=== PATIENT | female | born 1990 | race American Indian/Alaskan Native ===

== ENCOUNTER 2017-03-31 20:25 | Emergency (ER) | payer MEDICAID ==
[2017-03-31 20:40] VITALS: BP 104/65
== END 2017-03-31 21:55 | disposition left against medical advice (07) ==
LOC: ED 20:25
DX: M79.645 Pain in left finger(s) (principal); Z88.0 Allergy status to penicillin; Z88.8 Allergy status to other drugs, medicaments and biological substances; K21.9 Gastro-esophageal reflux disease without esophagitis; G43.909 Migraine, unspecified, not intractable, without status migrainosus; F12.90 Cannabis use, unspecified, uncomplicated; Z53.21 Procedure and treatment not carried out due to patient leaving prior to being seen by health care provider

== ENCOUNTER 2017-07-09 02:01 | Emergency (ER) | payer MEDICAID ==
[2017-07-09 02:51] LABS: Basophils % (Auto) 0.4 % (0.0-1.8); Eosinophils % (Auto) 0.7 % (0.0-4.3); Hematocrit 36.7 % (30.3-42.9); Hemoglobin 12.4 gm/dl (10.1-14.3); Mean Corpuscular HGB Conc 34 % (30-34); Mean Corpuscular Hemoglobin 30 pg (28-32); Mean Corpuscular Volume 88 fl (79-97); Platelet Count 119 K/mm3 (140-440); Red Blood Count 4.19 M/mm3 (3.65-5.03); White Blood Count 4.3 K/mm3 (4.5-11.0)
[2017-07-09 03:27] LABS: Anion Gap 19 mmol/L; BUN/Creatinine Ratio 13.33; Blood Urea Nitrogen 8 mg/dL (7-17); Calcium 8.2 mg/dL (8.4-10.2); Carbon Dioxide 18 mmol/L (22-30); Chloride 102.3 mmol/L (98-107); Glucose 107 mg/dL (65-100); Potassium 3.7 mmol/L (3.6-5.0); Sodium 136 mmol/L (137-145)
[2017-07-09] MEDS ORDERED: KEPPRA 1,000 MG/NS 0.75% 100ML 1,000 MG/100 ML BAG IV ONE (03:30)
--- NOTE | 2017-07-09 06:04 | Emergency Department Report ---
ED Seizure HPI - General Chief Complaint: Seizure Stated Complaint: SEIZURE Time Seen by Provider: 07/09/17 02:22 Source: EMS Mode of arrival: Stretcher Limitations: No Limitations - History of Present Illness Initial Comments: Patient is a 26-year-old female past medical history of seizure disorder who presents status post seizure. Patient states that she feels tired and that she' s had multiple seizures before. Patient had 3 seizures today she states that she's been compliant with her seizure medications. Patient had a generalized tonic-clonic seizure is unknown how long it lasted. Patient had no tongue biting or urination - Related Data Home Medications Medication Instructions Recorded Confirmed Last Taken lamoTRIgine [Lamictal] 01/31/14 01/31/14 Unknown levETIRAcetam [Keppra] 01/31/14 01/31/14 Unknown Previous Rx's Medication Instructions Recorded Last Taken Type Fluticasone Propionate [Flonase] 16 gm NS BID #1 spray.susp 01/31/14 Unknown Rx Sulfamethoxazole/Trimethoprim 1 each PO BID #20 tablet 01/31/14 Unknown Rx [Bactrim Ds] Clindamycin [Clindamycin CAP] 300 mg PO Q6H #28 capsule 02/14/14 Unknown Rx HYDROcodone/APAP 10-325 [[place] 1 each PO Q6HR PRN #16 tablet 02/14/14 Unknown Rx 10/325] Ondansetron [Zofran Odt] 4 mg PO Q6H PRN #8 tab.rapdis 02/14/14 Unknown Rx predniSONE [Deltasone] 20 mg PO BID #10 tab 02/14/14 Unknown Rx Clindamycin Palmitate (Nf) 300 mg PO TID 10 Days 04/13/14 Unknown Rx [Cleocin Palmitate ORAL SOLN] Ondansetron [Zofran Odt] 8 mg PO TID #12 tab.rapdis 05/26/14 Unknown Rx Vit#96/Ferrous Fum/FA 1 each PO QDAY #30 tablet 05/26/14 Unknown Rx [ Tablet] Pyridoxine [Vitamin B-6] 75 mg PO DAILY #20 tablet 05/26/14 Unknown Rx Ibuprofen [Motrin] 600 mg PO Q8H PRN #40 tablet 08/27/15 Unknown Rx Cyclobenzaprine [Flexeril] 10 mg PO TID PRN #15 tablet 06/20/16 Unknown Rx Ibuprofen [Motrin] 800 mg PO Q8HR PRN #15 tablet 06/20/16 Unknown Rx Allergies Allergy/AdvReac Type Severity Reaction Status Date / Time Penicillins Allergy Rash Verified 01/17/16 11:04 hydrocodone bitartrate AdvReac Nausea Verified 01/17/16 11:04 [From Lortab] phenytoin sodium AdvReac Itching Verified 01/17/16 11:04 [From Dilantin] phenytoin sodium extended AdvReac Itching Verified 01/17/16 11:04 [From Dilantin] ED Review of Systems ROS: Stated complaint: SEIZURE Other details as noted in HPI Constitutional: denies: chills, fever Eyes: denies: eye pain, eye discharge, vision change ENT: denies: ear pain, throat pain Respiratory: denies: cough, shortness of breath, wheezing Cardiovascular: denies: chest pain, palpitations Endocrine: no symptoms reported Gastrointestinal: denies: abdominal pain, nausea, diarrhea Genitourinary: denies: urgency, dysuria, discharge Musculoskeletal: denies: back pain, joint swelling, arthralgia Skin: denies: rash, lesions Neurological: other (seizure ). denies: headache, weakness, paresthesias Psychiatric: denies: anxiety, depression Hematological/Lymphatic: denies: easy bleeding, easy bruising ED Past Medical Hx - Past Medical History Hx GERD: Yes Hx Headaches / Migraines: Yes Hx Seizures: Yes - Surgical History Additional Surgical History: left ear surgery - Social History Smoking Status: Unknown if ever smoked Substance Use Type: None - Medications Home Medications: Home Medications Medication Instructions Recorded Confirmed Last Taken Type Fluticasone Propionate [Flonase] 16 gm NS BID #1 spray.susp 01/31/14 Unknown Rx Sulfamethoxazole/Trimethoprim 1 each PO BID #20 tablet 01/31/14 Unknown Rx [Bactrim Ds] lamoTRIgine [Lamictal] 01/31/14 01/31/14 Unknown History levETIRAcetam [Keppra] 01/31/14 01/31/14 Unknown History Clindamycin [Clindamycin CAP] 300 mg PO Q6H #28 capsule 02/14/14 Unknown Rx HYDROcodone/APAP 10-325 [[place] 1 each PO Q6HR PRN #16 tablet 03/24/14 Unknown Rx 10/325] Ondansetron [Zofran Odt] 4 mg PO Q6H PRN #8 tab.rapdis 02/14/14 Unknown Rx predniSONE [Deltasone] 20 mg PO BID #10 tab 02/14/14 Unknown Rx Clindamycin Palmitate (Nf) 300 mg PO TID 10 Days 04/13/14 Unknown Rx [Cleocin Palmitate ORAL SOLN] Ondansetron [Zofran Odt] 8 mg PO TID #12 tab.rapdis 05/26/14 Unknown Rx Vit#96/Ferrous Fum/FA 1 each PO QDAY #30 tablet 05/26/14 Unknown Rx [ Tablet] Pyridoxine [Vitamin B-6] 75 mg PO DAILY #20 tablet 05/26/14 Unknown Rx Ibuprofen [Motrin] 600 mg PO Q8H PRN #40 tablet 08/27/15 Unknown Rx Cyclobenzaprine [Flexeril] 10 mg PO TID PRN #15 tablet 06/20/16 Unknown Rx Ibuprofen [Motrin] 800 mg PO Q8HR PRN #15 tablet 06/20/16 Unknown Rx ED Physical Exam - General Limitations: No Limitations General appearance: alert, in no apparent distress, lethargic - Head Head exam: Present: atraumatic, normocephalic - Eye Eye exam: Present: normal appearance - ENT ENT exam: Present: mucous membranes moist - Neck Neck exam: Present: normal inspection - Respiratory Respiratory exam: Present: normal lung sounds bilaterally. Absent: respiratory distress - Cardiovascular Cardiovascular Exam: Present: regular rate, normal rhythm. Absent: systolic murmur, diastolic murmur, rubs, gallop - GI/Abdominal GI/Abdominal exam: Present: soft, normal bowel sounds - Extremities Exam Extremities exam: Present: normal inspection - Back Exam Back exam: Present: normal inspection - Neurological Exam Neurological exam: Present: alert, oriented X3 - Psychiatric Psychiatric exam: Present: normal affect, normal mood - Skin Skin exam: Present: warm, dry, intact, normal color. Absent: rash ED Course Vital Signs 07/09/17 07/09/17 07/09/17 02:11 02:30 03:00 Temperature 98.8 F Pulse Rate 83 78 74 Respiratory 16 13 22 Rate Blood Pressure 127/73 122/71 Blood Pressure 140/81 [Right] O2 Sat by Pulse 100 99 97 Oximetry 07/09/17 07/09/17 07/09/17 03:30 04:00 04:30 Temperature Pulse Rate 76 71 76 Respiratory 21 22 13 Rate Blood Pressure 113/65 107/61 108/75 Blood Pressure [Right] O2 Sat by Pulse 98 96 Oximetry 07/09/17 07/09/17 07/09/17 05:00 05:30 06:00 Temperature Pulse Rate 64 68 81 Respiratory 22 22 14 Rate Blood Pressure 96/52 92/46 92/46 Blood Pressure [Right] O2 Sat by Pulse 97 97 99 Oximetry 07/09/17 06:07 Temperature Pulse Rate 69 Respiratory 12 Rate Blood Pressure Blood Pressure 112/68 [Right] O2 Sat by Pulse 100 Oximetry - Reevaluation(s) Reevaluation #1: 07/09/17 06:48 Patient is feeling better, we'll send patient home discussed the patient to follow up with her neurologist. ED Medical Decision Making - Lab Data Result diagrams: 07/09/17 02:16 07/09/17 02:16 Lab Results 07/09/17 07/09/17 07/09/17 Range/Units 02:16 02:16 02:17 WBC 4.3 L (4.5-11.0) K/mm3 RBC 4.19 (3.65-5.03) M/mm3 Hgb 12.4 (10.1-14.3) gm/dl Hct 36.7 (30.3-42.9) % MCV 88 (79-97) fl MCH 30 (28-32) pg MCHC 34 (30-34) % RDW 13.0 L (13.2-15.2) % Plt Count 119 L (140-440) K/mm3 Lymph % (Auto) 26.3 (13.4-35.0) % [place] % (Auto) 7.3 (0.0-7.3) % Eos % (Auto) 0.7 (0.0-4.3) % Baso % (Auto) 0.4 (0.0-1.8) % Lymph # 1.1 L (1.2-5.4) K/mm3 [place] # 0.3 (0.0-0.8) K/mm3 Eos # 0.0 (0.0-0.4) K/mm3 Baso # 0.0 (0.0-0.1) K/mm3 Seg Neutrophils % 65.3 (40.0-70.0) % Seg Neutrophils # 2.8 (1.8-7.7) K/mm3 Sodium 136 L (137-145) mmol/L Potassium 3.7 (3.6-5.0) mmol/L Chloride 102.3 (98-107) mmol/L Carbon Dioxide 18 L (22-30) mmol/L Anion Gap 19 mmol/L BUN 8 (7-17) mg/dL Creatinine 0.6 L (0.7-1.2) mg/dL Estimated GFR > 60 ml/min BUN/Creatinine Ratio 13.33 % Glucose 107 H (65-100) mg/dL POC Glucose 126 H (70-105) Calcium 8.2 L (8.4-10.2) mg/dL HCG, Qual (Negative) 07/09/17 Range/Units 02:33 WBC (4.5-11.0) K/mm3 RBC (3.65-5.03) M/mm3 Hgb (10.1-14.3) gm/dl Hct (30.3-42.9) % MCV (79-97) fl MCH (28-32) pg MCHC (30-34) % RDW (13.2-15.2) % Plt Count (140-440) K/mm3 Lymph % (Auto) (13.4-35.0) % [place] % (Auto) (0.0-7.3) % Eos % (Auto) (0.0-4.3) % Baso % (Auto) (0.0-1.8) % Lymph # (1.2-5.4) K/mm3 [place] # (0.0-0.8) K/mm3 Eos # (0.0-0.4) K/mm3 Baso # (0.0-0.1) K/mm3 Seg Neutrophils % (40.0-70.0) % Seg Neutrophils # (1.8-7.7) K/mm3 Sodium (137-145) mmol/L Potassium (3.6-5.0) mmol/L Chloride (98-107) mmol/L Carbon Dioxide (22-30) mmol/L Anion Gap mmol/L BUN (7-17) mg/dL Creatinine (0.7-1.2) mg/dL Estimated GFR ml/min BUN/Creatinine Ratio % Glucose (65-100) mg/dL POC Glucose (70-105) Calcium (8.4-10.2) mg/dL HCG, Qual Negative (Negative) - Medical Decision Making Chief medical diagnosis: 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 Patient has had seizures in the ED she is more alert and oriented I will send patient home. Patient's laboratory findings are within the normal limits. Critical care attestation.: If time is entered above; I have spent that time in minutes in the direct care of this critically ill patient, excluding procedure time. ED Disposition Clinical Impression: Seizure Disposition: DC-01 TO HOME OR SELFCARE Is pt being admited?: No Does the pt Need Aspirin: No Condition: Stable Instructions: Epilepsy (ED) Referrals: PRIMARY CARE, [Primary Care Provider] - 3-5 Days
[2017-07-09 06:08] VITALS: BP 112/68
== END 2017-07-09 06:32 | disposition home or self-care (01) ==
LOC: ED 02:01
DX: G40.909 Epilepsy, unspecified, not intractable, without status epilepticus (principal); Z88.0 Allergy status to penicillin; Z88.8 Allergy status to other drugs, medicaments and biological substances; K21.9 Gastro-esophageal reflux disease without esophagitis; G43.909 Migraine, unspecified, not intractable, without status migrainosus
CPT/HCPCS: 36415; 80048; 82962; 84703; 85025; 96374; 99284; J1953

== ENCOUNTER 2017-10-12 13:58 | Emergency (ER) | payer MEDICAID ==
[2017-10-12] MEDS ORDERED: KEPPRA 1,000 MG/NS 0.75% 100ML 1,000 MG/100 ML BAG IV ONE ×2 (14:03→14:14)
[2017-10-12 16:00] LABS: Basophils % (Auto) 0.5 % (0.0-1.8); Hematocrit 40.2 % (30.3-42.9); Hemoglobin 13.6 gm/dl (10.1-14.3); Mean Corpuscular HGB Conc 34 % (30-34); Mean Corpuscular Hemoglobin 30 pg (28-32); Mean Corpuscular Volume 87 fl (79-97); Platelet Count 111 K/mm3 (140-440); Red Cell Distribution Width 12.9 % (13.2-15.2); White Blood Count 5.9 K/mm3 (4.5-11.0)
[2017-10-12] MEDS ORDERED: ATIVAN IV ONE (16:15)
[2017-10-12] MEDS ORDERED: ATIVAN ONE (16:16)
[2017-10-12 16:17] LABS: Alanine Aminotransferase 8 units/L (7-56); Albumin 4.4 g/dL (3.9-5); Albumin/Globulin Ratio 1.8 %; Alkaline Phosphatase 50 units/L (35-129); Anion Gap 15 mmol/L; BUN/Creatinine Ratio 17; Blood Urea Nitrogen 10 mg/dL (7-17); Calcium 9.1 mg/dL (8.4-10.2); Carbon Dioxide 26 mmol/L (22-30); Glucose 81 mg/dL (65-100); Potassium 4.3 mmol/L (3.6-5.0); Sodium 138 mmol/L (137-145); Total Protein 6.9 g/dL (6.3-8.2)
[2017-10-12 16:18] LABS: Bilirubin,Direct < 0.2 mg/dL (0-0.2); Bilirubin,Indirect 0.2 mg/dL
[2017-10-12 16:37] LABS: Urine Drugs of Abuse Note Disclamer
[2017-10-12 17:18] LABS: Bacteria,Urine 1+ /HPF (Negative); Bilirubin,Urine NEG (Negative); Blood,Urine NEG (Negative); Ketones,Urine NEG (Negative); Leukocyte Esterase,Urine NEG (Negative); Nitrite,Urine NEG (Negative); Protein,Urine <15 mg/dL mg/dL (Negative); RBC,Urine < 1.0 /HPF (0.0-6.0); Urobilinogen,Urine < 2.0 mg/dL (<2.0)
--- NOTE | 2017-10-12 17:42 | Emergency Department Report ---
ED Seizure HPI - General Chief Complaint: Seizure Stated Complaint: SEIZURES Time Seen by Provider: 10/12/17 14:14 Source: EMS Mode of arrival: Wheelchair Limitations: No Limitations - History of Present Illness Initial Comments: Patient apparently had a seizure at home and then presented to the emergency department postictal the EMS. At the time of my encounter she was starting to come around. Paramedics reported noncompliance with her Keppra medicine. They did report a normal spot glucose. Her vital signs were stable in route. When she arrived she was immediately given a gram of Keppra intravenously. MD Complaint: seizure -: Sudden Description of Episode: tonic-clonic movement -: minutes(s) (no precise duration was reported) Witnessed:: Yes Trauma: No Seizure History: known seizure disorder Place: home Possible Precipitating Event: other (medication noncompliance) - Related Data Home Medications Medication Instructions Recorded Confirmed Last Taken lamoTRIgine [Lamictal] 01/31/14 01/31/14 Unknown levETIRAcetam [Keppra] 01/31/14 01/31/14 Unknown Previous Rx's Medication Instructions Recorded Last Taken Type Fluticasone Propionate [Flonase] 16 gm NS BID #1 spray.susp 01/31/14 Unknown Rx Sulfamethoxazole/Trimethoprim 1 each PO BID #20 tablet 01/31/14 Unknown Rx [Bactrim Ds] Clindamycin [Clindamycin CAP] 300 mg PO Q6H #28 capsule 02/14/14 Unknown Rx HYDROcodone/APAP 10-325 [[place] 1 each PO Q6HR PRN #16 tablet 02/14/14 Unknown Rx 10/325] Ondansetron [Zofran Odt] 4 mg PO Q6H PRN #8 tab.rapdis 02/14/14 Unknown Rx predniSONE [Deltasone] 20 mg PO BID #10 tab 02/14/14 Unknown Rx Clindamycin Palmitate (Nf) 300 mg PO TID 10 Days ml 04/13/14 Unknown Rx [Cleocin Palmitate ORAL SOLN] Ondansetron [Zofran Odt] 8 mg PO TID #12 tab.rapdis 05/26/14 Unknown Rx Vits96/Iron Fum/Folic 1 each PO QDAY #30 tablet 05/26/14 Unknown Rx [ Tablet] Pyridoxine [Vitamin B-6] 75 mg PO DAILY #20 tablet 05/26/14 Unknown Rx Ibuprofen [Motrin] 600 mg PO Q8H PRN #40 tablet 08/27/15 Unknown Rx Cyclobenzaprine [Flexeril] 10 mg PO TID PRN #15 tablet 06/20/16 Unknown Rx Ibuprofen [Motrin] 800 mg PO Q8HR PRN #15 tablet 06/20/16 Unknown Rx Allergies Allergy/AdvReac Type Severity Reaction Status Date / Time Penicillins Allergy Rash Verified 01/17/16 11:04 hydrocodone bitartrate AdvReac Nausea Verified 01/17/16 11:04 [From Lortab] phenytoin sodium AdvReac Itching Verified 01/17/16 11:04 [From Dilantin] phenytoin sodium extended AdvReac Itching Verified 01/17/16 11:04 [From Dilantin] ED Review of Systems ROS: Stated complaint: SEIZURES Other details as noted in HPI Comment: Unobtainable due to pts medical conditions ED Past Medical Hx - Past Medical History Hx GERD: Yes Hx Headaches / Migraines: Yes Hx Seizures: Yes - Surgical History Additional Surgical History: left ear surgery - Social History Smoking Status: Unknown if ever smoked Substance Use Type: None - Medications Home Medications: Home Medications Medication Instructions Recorded Confirmed Last Taken Type Fluticasone Propionate [Flonase] 16 gm NS BID #1 spray.susp 01/31/14 Unknown Rx Sulfamethoxazole/Trimethoprim 1 each PO BID #20 tablet 01/31/14 Unknown Rx [Bactrim Ds] lamoTRIgine [Lamictal] 01/31/14 01/31/14 Unknown History levETIRAcetam [Keppra] 01/31/14 01/31/14 Unknown History Clindamycin [Clindamycin CAP] 300 mg PO Q6H #28 capsule 02/14/14 Unknown Rx HYDROcodone/APAP 10-325 [[place] 1 each PO Q6HR PRN #16 tablet 02/14/14 Unknown Rx 10/325] Ondansetron [Zofran Odt] 4 mg PO Q6H PRN #8 tab.rapdis 02/14/14 Unknown Rx predniSONE [Deltasone] 20 mg PO BID #10 tab 02/14/14 Unknown Rx Clindamycin Palmitate (Nf) 300 mg PO TID 10 Days ml 04/13/14 Unknown Rx [Cleocin Palmitate ORAL SOLN] Ondansetron [Zofran Odt] 8 mg PO TID #12 tab.rapdis 05/26/14 Unknown Rx Vits96/Iron Fum/Folic 1 each PO QDAY #30 tablet 05/26/14 Unknown Rx [ Tablet] Pyridoxine [Vitamin B-6] 75 mg PO DAILY #20 tablet 05/26/14 Unknown Rx Ibuprofen [Motrin] 600 mg PO Q8H PRN #40 tablet 08/27/15 Unknown Rx Cyclobenzaprine [Flexeril] 10 mg PO TID PRN #15 tablet 06/20/16 Unknown Rx Ibuprofen [Motrin] 800 mg PO Q8HR PRN #15 tablet 06/20/16 Unknown Rx ED Physical Exam - General Limitations: No Limitations General appearance: alert, in no apparent distress - Head Head exam: Present: atraumatic, normocephalic - Eye Eye exam: Present: normal appearance - ENT ENT exam: Present: mucous membranes moist - Neck Neck exam: Present: normal inspection. Absent: tenderness, meningismus - Respiratory Respiratory exam: Present: normal lung sounds bilaterally. Absent: respiratory distress - Cardiovascular Cardiovascular Exam: Present: regular rate, normal rhythm. Absent: systolic murmur, diastolic murmur, rubs, gallop - GI/Abdominal GI/Abdominal exam: Present: soft, normal bowel sounds. Absent: distended, tenderness, guarding, rebound, rigid - Extremities Exam Extremities exam: Present: normal inspection - Neurological Exam Neurological exam: Present: other (post afebrile without apparent focal deficit) - Psychiatric Psychiatric exam: Present: normal affect, normal mood - Skin Skin exam: Present: warm, dry, intact, normal color. Absent: rash ED Course Vital Signs 10/12/17 10/12/17 10/12/17 14:05 14:31 15:01 Temperature Pulse Rate 76 72 Respiratory 15 16 20 Rate Blood Pressure 132/66 109/67 Blood Pressure [Right] O2 Sat by Pulse 100 100 100 Oximetry 10/12/17 10/12/17 10/12/17 15:30 15:35 15:38 Temperature 98 F Pulse Rate 72 77 Respiratory 12 13 13 Rate Blood Pressure 111/69 Blood Pressure 109/67 [Right] O2 Sat by Pulse 100 100 100 Oximetry 10/12/17 10/12/17 10/12/17 16:00 16:30 17:00 Temperature Pulse Rate 77 72 67 Respiratory 16 12 22 Rate Blood Pressure 110/72 108/66 123/70 Blood Pressure [Right] O2 Sat by Pulse 100 100 99 Oximetry 10/12/17 17:30 Temperature Pulse Rate 77 Respiratory 23 Rate Blood Pressure 100/57 Blood Pressure 100/57 [Right] O2 Sat by Pulse 99 Oximetry - Reevaluation(s) Reevaluation #1: The patient had another generalized seizure. Nurses gave 2 mg of Ativan. She had her workup expanded. Patient was admitted by Dr. Connelly to the hospitalist service for further care. 10/12/17 17:42 ED Medical Decision Making - Lab Data Result diagrams: 10/12/17 15:40 10/12/17 15:40 Laboratory Results - last 24 hr 10/12/17 10/12/17 10/12/17 15:40 15:40 16:32 WBC 5.9 RBC 4.60 Hgb 13.6 Hct 40.2 MCV 87 MCH 30 MCHC 34 RDW 12.9 L Plt Count 111 L Lymph % (Auto) 25.5 [place] % (Auto) 9.4 H Eos % (Auto) 1.0 Baso % (Auto) 0.5 Lymph # 1.5 [place] # 0.6 Eos # 0.1 Baso # 0.0 Seg Neutrophils % 63.6 Seg Neutrophils # 3.8 Sodium 138 Potassium 4.3 Chloride 101.0 Carbon Dioxide 26 Anion Gap 15 BUN 10 Creatinine 0.6 L Estimated GFR > 60 BUN/Creatinine Ratio 17 Glucose 81 Calcium 9.1 Magnesium 1.80 Total Bilirubin 0.40 Direct Bilirubin < 0.2 Indirect Bilirubin 0.2 AST 17 ALT 8 Alkaline Phosphatase 50 Total Protein 6.9 Albumin 4.4 Albumin/Globulin Ratio 1.8 Urine Color Yellow Urine Turbidity Clear Urine pH 6.0 Ur Specific [place] 1.013 Urine Protein <15 mg/dl Urine Glucose (UA) Neg Urine Ketones Neg Urine Blood Neg Urine Nitrite Neg Urine Bilirubin Neg Urine Urobilinogen < 2.0 Ur Leukocyte Esterase Neg Urine WBC (Auto) 1.0 Urine RBC (Auto) < 1.0 U Epithel Cells (Auto) 9.0 Urine Bacteria (Auto) 1+ Urine HCG, Qual Negative Urine Opiates Screen Urine Methadone Screen Ur Barbiturates Screen Ur Phencyclidine Scrn Ur Amphetamines Screen U Benzodiazepines Scrn Urine Cocaine Screen U Marijuana (THC) Screen Drugs of Abuse Note 10/12/17 16:32 WBC RBC Hgb Hct MCV MCH MCHC RDW Plt Count Lymph % (Auto) [place] % (Auto) Eos % (Auto) Baso % (Auto) Lymph # [place] # Eos # Baso # Seg Neutrophils % Seg Neutrophils # Sodium Potassium Chloride Carbon Dioxide Anion Gap BUN Creatinine Estimated GFR BUN/Creatinine Ratio Glucose Calcium Magnesium Total Bilirubin Direct Bilirubin Indirect Bilirubin AST ALT Alkaline Phosphatase Total Protein Albumin Albumin/Globulin Ratio Urine Color Urine Turbidity Urine pH Ur Specific [place] Urine Protein Urine Glucose (UA) Urine Ketones Urine Blood Urine Nitrite Urine Bilirubin Urine Urobilinogen Ur Leukocyte Esterase Urine WBC (Auto) Urine RBC (Auto) U Epithel Cells (Auto) Urine Bacteria (Auto) Urine HCG, Qual Urine Opiates Screen Presumptive negative Urine Methadone Screen Presumptive negative Ur Barbiturates Screen Presumptive negative Ur Phencyclidine Scrn Presumptive negative Ur Amphetamines Screen Presumptive negative U Benzodiazepines Scrn Presumptive negative Urine Cocaine Screen Presumptive negative U Marijuana (THC) Screen Presumptive positive Drugs of Abuse Note Disclamer - EKG Data -: EKG Interpreted by Me EKG shows normal: sinus rhythm, axis, intervals, QRS complexes, ST-T waves Rate: normal - EKG Data Interpretation: no acute changes - Radiology Data interpreted by me: No acute process seen on CT. Official report pending. Critical care attestation.: If time is entered above; I have spent that time in minutes in the direct care of this critically ill patient, excluding procedure time. ED Disposition Clinical Impression: Recurrent seizures Disposition: OP ADMIT IP TO THIS HOSP Is pt being admited?: Yes Does the pt Need Aspirin: Yes Condition: Stable Time of Disposition: 17:48
[2017-10-12] MEDS ORDERED: BABY ASPIRIN PO ONE (17:49)
--- NOTE | 2017-10-12 17:52 | Cat Scan Report ---
FINAL REPORT PROCEDURE: CT HEAD/BRAIN WO CON TECHNIQUE: Computerized tomography of the head was performed without contrast material. HISTORY: recurrent sz COMPARISON: No prior studies are available for comparison. FINDINGS: Brain: Brain density appears normal. No evidence of intracranial hemorrhage. No parenchymal hemorrhage, mass lesions or mass effect are seen. No abnormal extraxial fluid collects or masses are seen. Ventricles: Ventricles are normal size and are midline. Bone Windows: No evidence of skull fracture. Paranasal sinuses: Visualized portions appear clear. Mastoid air cells: Clear IMPRESSION: Negative unenhanced CT scan of the brain. If clinically indicated MRI of the brain could be obtained to evaluate for possible seizure focus.
--- NOTE | 2017-10-12 18:28 | XRay Report ---
FINAL REPORT EXAM: XR CHEST 1V AP HISTORY: hypertension TECHNIQUE: AP portable view(s) of the chest obtained. PRIORS: None. FINDINGS: No mediastinal shift. Cardiac silhouette is not enlarged. No pneumothorax, effusion, or focal pulmonary opacity identified. No acute skeletal findings. IMPRESSION: No acute pulmonary finding identified.
--- NOTE | 2017-10-12 19:17 | Event Note ---
Date: 10/12/17 Patient seen and evaluated Seizure disorder wial state back to normal at 1018 hrs On Keppra 1000mg po q12h Did not take keppra for 2 days b/c odf sore throat.
[2017-10-12 21:17] VITALS: BP 111/75
== END 2017-10-12 21:18 | disposition admitted as inpatient to this hospital (09) ==
LOC: ED 13:58
DX: G40.909 Epilepsy, unspecified, not intractable, without status epilepticus (principal); K21.9 Gastro-esophageal reflux disease without esophagitis; G43.909 Migraine, unspecified, not intractable, without status migrainosus; Z88.0 Allergy status to penicillin; Z88.8 Allergy status to other drugs, medicaments and biological substances
CPT/HCPCS: 36415; 70450; 71010; 80048; 80074; 80307; 81001; 81025; 83735; 85025; 93005; 93010; 96365; 96375; 99285; J1953; J2060

== ENCOUNTER 2018-02-11 10:40 | Emergency (ER) | payer MEDICAID ==
[2018-02-11] MEDS ORDERED: REGLAN IV ONE (11:01)
[2018-02-11] MEDS ORDERED: BENADRYL IV ONE (11:01)
[2018-02-11] MEDS ORDERED: TORADOL IV ONE (11:01)
[2018-02-11] MEDS ORDERED: KEPPRA 1,000 MG/NS 0.75% 100ML 1,000 MG/100 ML BAG IV ONE (11:02)
[2018-02-11] MEDS ORDERED: LaMICtal PO ONE (11:06)
--- NOTE | 2018-02-11 11:12 | Emergency Department Report ---
ED Seizure HPI - General Stated Complaint: SEIZURES Source: patient, EMS Mode of arrival: Stretcher Limitations: No Limitations - History of Present Illness Initial Comments: 27-year-old female with a past medical history of seizures presents to the hospital after having 4 seizures (3 home and one in route witnessed by EMS) prior to arrival. Seizure witnessed by EMS lasted approximately 30 seconds, tonic-clonic, followed by 3 minute postictal period. Patient takes Keppra and Lamictal and took her last dose last night and did not have her a.m. dose. She does have her refills available in the pharmacy. When she was here in September when she had her last seizure and had a CT head that was negative at that time. Patient typically has her seizures and clusters. She reports as a bitemporal and frontal headache that is moderate to severe in intensity, throbbing and burning, and aggravated by light. This is typical of her chronic intermittent migraine headaches to have been more frequent lately secondary to stress. She saw her neurologist is Dr. Engle on the and had a magnesium based migraine medication prescribed. Positive nausea without vomiting. No focal weakness, numbness, or tongue laceration - Related Data Home Medications Medication Instructions Recorded Confirmed Last Taken lamoTRIgine [Lamictal] 01/31/14 01/31/14 Unknown levETIRAcetam [Keppra] 01/31/14 01/31/14 Unknown Previous Rx's Medication Instructions Recorded Last Taken Type Fluticasone Propionate [Flonase] 16 gm NS BID #1 spray.susp 01/31/14 Unknown Rx Sulfamethoxazole/Trimethoprim 1 each PO BID #20 tablet 01/31/14 Unknown Rx [Bactrim Ds] Clindamycin [Clindamycin CAP] 300 mg PO Q6H #28 capsule 02/14/14 Unknown Rx HYDROcodone/APAP 10-325 [[place] 1 each PO Q6HR PRN #16 tablet 02/14/14 Unknown Rx 10/325] Ondansetron [Zofran Odt] 4 mg PO Q6H PRN #8 tab.rapdis 02/14/14 Unknown Rx predniSONE [Deltasone] 20 mg PO BID #10 tab 02/14/14 Unknown Rx Clindamycin Palmitate (Nf) 300 mg PO TID 10 Days ml 04/13/14 Unknown Rx [Cleocin Palmitate ORAL SOLN] Ondansetron [Zofran Odt] 8 mg PO TID #12 tab.rapdis 05/26/14 Unknown Rx Vits96/Iron Fum/Folic 1 each PO QDAY #30 tablet 05/26/14 Unknown Rx [ Tablet] Pyridoxine [Vitamin B-6] 75 mg PO DAILY #20 tablet 05/26/14 Unknown Rx Ibuprofen [Motrin] 600 mg PO Q8H PRN #40 tablet 08/27/15 Unknown Rx Cyclobenzaprine [Flexeril] 10 mg PO TID PRN #15 tablet 06/20/16 Unknown Rx Ibuprofen [Motrin] 800 mg PO Q8HR PRN #15 tablet 06/20/16 Unknown Rx Allergies Allergy/AdvReac Type Severity Reaction Status Date / Time Penicillins Allergy Rash Verified 01/17/16 11:04 hydrocodone bitartrate AdvReac Nausea Verified 01/17/16 11:04 [From Lortab] phenytoin sodium AdvReac Itching Verified 01/17/16 11:04 [From Dilantin] phenytoin sodium extended AdvReac Itching Verified 01/17/16 11:04 [From Dilantin] ED Review of Systems ROS: Stated complaint: SEIZURES Other details as noted in HPI Comment: All other systems reviewed and negative ED Past Medical Hx - Past Medical History Hx GERD: Yes Hx Headaches / Migraines: Yes Hx Seizures: Yes - Surgical History Additional Surgical History: left ear surgery - Social History Smoking Status: Unknown if ever smoked Substance Use Type: None - Medications Home Medications: Home Medications Medication Instructions Recorded Confirmed Last Taken Type Fluticasone Propionate [Flonase] 16 gm NS BID #1 spray.susp 01/31/14 Unknown Rx Sulfamethoxazole/Trimethoprim 1 each PO BID #20 tablet 01/31/14 Unknown Rx [Bactrim Ds] lamoTRIgine [Lamictal] 01/31/14 01/31/14 Unknown History levETIRAcetam [Keppra] 01/31/14 01/31/14 Unknown History Clindamycin [Clindamycin CAP] 300 mg PO Q6H #28 capsule 02/14/14 Unknown Rx HYDROcodone/APAP 10-325 [[place] 1 each PO Q6HR PRN #16 tablet 02/14/14 Unknown Rx 10/325] Ondansetron [Zofran Odt] 4 mg PO Q6H PRN #8 tab.rapdis 02/14/14 Unknown Rx predniSONE [Deltasone] 20 mg PO BID #10 tab 02/14/14 Unknown Rx Clindamycin Palmitate (Nf) 300 mg PO TID 10 Days ml 04/13/14 Unknown Rx [Cleocin Palmitate ORAL SOLN] Ondansetron [Zofran Odt] 8 mg PO TID #12 tab.rapdis 05/26/14 Unknown Rx Vits96/Iron Fum/Folic 1 each PO QDAY #30 tablet 05/26/14 Unknown Rx [ Tablet] Pyridoxine [Vitamin B-6] 75 mg PO DAILY #20 tablet 05/26/14 Unknown Rx Ibuprofen [Motrin] 600 mg PO Q8H PRN #40 tablet 08/27/15 Unknown Rx Cyclobenzaprine [Flexeril] 10 mg PO TID PRN #15 tablet 06/20/16 Unknown Rx Ibuprofen [Motrin] 800 mg PO Q8HR PRN #15 tablet 06/20/16 Unknown Rx ED Physical Exam - Other Other exam information: General: No limitations, patient is alert in no acute distress Head exam: Atraumatic, normocephalic Eyes exam: Normal appearance, extraocular movements intact ENT: Moist mucous membrane, normal oropharynx Neck exam: Normal inspection, full range of motion, no meningismus nontender Respiratory exam: Clear to auscultation bilateral, no wheezes, rales, crackles Cardiovascular: Normal rate and rhythm, normal heart sounds Abdomen: Soft, nondistended, and nontender, with normal bowel sounds, no rebound, or guarding Extremity: Full range of motion normal inspection no deformity Back: Normal Inspection, full range of motion, no tenderness Neurologic: Alert, oriented x3, cranial nerves intact, no motor or sensory deficit Psychiatric: normal affect, normal mood Skin: Warm, dry, intact ED Course Vital Signs 02/11/18 02/11/18 02/11/18 10:52 11:01 11:15 Temperature Pulse Rate Blood Pressure O2 Sat by Pulse 100 100 100 Oximetry 02/11/18 02/11/18 02/11/18 11:31 11:39 11:45 Temperature 98.6 F Pulse Rate 68 Blood Pressure 122/80 125/78 O2 Sat by Pulse 100 100 100 Oximetry 02/11/18 02/11/18 02/11/18 12:00 12:15 12:30 Temperature Pulse Rate Blood Pressure 129/86 131/87 123/85 O2 Sat by Pulse 100 100 98 Oximetry 02/11/18 02/11/18 12:45 13:00 Temperature Pulse Rate Blood Pressure 116/77 116/66 O2 Sat by Pulse 99 100 Oximetry - Reevaluation(s) Reevaluation #1: 02/11/18 13:17 pt feeling better with ed treatment ED Medical Decision Making - Lab Data Result diagrams: 02/11/18 11:04 02/11/18 11:04 Lab Results 02/11/18 02/11/18 02/11/18 Range/Units 11:04 11:04 11:04 WBC 3.0 L (4.5-11.0) K/mm3 RBC 4.74 (3.65-5.03) M/mm3 Hgb 13.7 (10.1-14.3) gm/dl Hct 41.2 (30.3-42.9) % MCV 87 (79-97) fl MCH 29 (28-32) pg MCHC 33 (30-34) % RDW 13.4 (13.2-15.2) % Plt Count 153 (140-440) K/mm3 Lymph % (Auto) 53.6 H (13.4-35.0) % [place] % (Auto) 7.1 (0.0-7.3) % Eos % (Auto) 2.5 (0.0-4.3) % Baso % (Auto) 0.8 (0.0-1.8) % Lymph # 1.6 (1.2-5.4) K/mm3 [place] # 0.2 (0.0-0.8) K/mm3 Eos # 0.1 (0.0-0.4) K/mm3 Baso # 0.0 (0.0-0.1) K/mm3 Seg Neutrophils % 36.0 L (40.0-70.0) % Seg Neutrophils # 1.1 L (1.8-7.7) K/mm3 Sodium 139 (137-145) mmol/L Potassium 4.4 (3.6-5.0) mmol/L Chloride 100.7 (98-107) mmol/L Carbon Dioxide 26 (22-30) mmol/L Anion Gap 17 mmol/L BUN 8 (7-17) mg/dL Creatinine 0.5 L (0.7-1.2) mg/dL Estimated GFR > 60 ml/min BUN/Creatinine Ratio 16 % Glucose 86 (65-100) mg/dL Calcium 8.9 (8.4-10.2) mg/dL Magnesium 1.90 (1.7-2.3) mg/dL HCG, Qual Negative (Negative) - Medical Decision Making Seizure Likely secondary to medication noncompliance. Patient received Keppra and Lamictal in the ED without further seizure activity Migraine headache Chronic, intermittent, and typical for previous headaches Improved after Benadryl, Reglan, and Toradol Patient will be discharged and encouraged to follow up with her neurologist and to take her medication as prescribed - Differential Diagnosis migraine, seizure, medication noncompliance, electrolyte abnormality, Critical Care Time: No Critical care attestation.: If time is entered above; I have spent that time in minutes in the direct care of this critically ill patient, excluding procedure time. ED Disposition Clinical Impression: Seizure, Migraine Disposition: DC- TO HOME OR SELFCARE Is pt being admited?: No Does the pt Need Aspirin: No Condition: Stable Instructions: Recurrent Seizures Adult (ED), Migraine Headache (ED) Additional Instructions: Take your medication as prescribed. Follow up with the neurologist. Return if symptoms worsen. Referrals: BRANDI ENGLE MD [Staff Physician] - 3-5 Days Time of Disposition: 13:21
[2018-02-11 11:40] LABS: Basophils % (Auto) 0.8 % (0.0-1.8); Eosinophils # (Auto) 0.1 K/mm3 (0.0-0.4); Eosinophils % (Auto) 2.5 % (0.0-4.3); Hematocrit 41.2 % (30.3-42.9); Hemoglobin 13.7 gm/dl (10.1-14.3); Lymphocytes # (Auto) 1.6 K/mm3 (1.2-5.4); Lymphocytes % (Auto) 53.6 % (13.4-35.0); Mean Corpuscular HGB Conc 33 % (30-34); Mean Corpuscular Hemoglobin 29 pg (28-32); Mean Corpuscular Volume 87 fl (79-97); Monocytes # (Auto) 0.2 K/mm3 (0.0-0.8); Monocytes % (Auto) 7.1 % (0.0-7.3); Platelet Count 153 K/mm3 (140-440); Red Blood Count 4.74 M/mm3 (3.65-5.03); Red Cell Distribution Width 13.4 % (13.2-15.2)
[2018-02-11 11:43] LABS: BUN/Creatinine Ratio 16; Blood Urea Nitrogen 8 mg/dL (7-17); Calcium 8.9 mg/dL (8.4-10.2); Hemolysis Index 16
[2018-02-11 13:55] VITALS: BP 118/70
== END 2018-02-11 13:55 | disposition home or self-care (01) ==
LOC: ED 10:40
DX: R56.9 Unspecified convulsions (principal); G43.909 Migraine, unspecified, not intractable, without status migrainosus; Z88.0 Allergy status to penicillin; Z88.8 Allergy status to other drugs, medicaments and biological substances; K21.9 Gastro-esophageal reflux disease without esophagitis
CPT/HCPCS: 36415; 80048; 83735; 84703; 85025; 96365; 96375; 99283; J1200; J1885; J1953; J2765

== ENCOUNTER 2018-06-01 04:27 | Emergency (ER) | payer MEDICAID ==
[2018-06-01 05:19] LABS: Bilirubin,Urine NEG (Negative); Blood,Urine NEG (Negative); Color,Urine Yellow (Yellow); Mucus,Urine FEW /HPF; Protein,Urine <15 mg/dL mg/dL (Negative); Urobilinogen,Urine < 2.0 mg/dL (<2.0)
[2018-06-01 05:53] LABS: Basophils % (Auto) 0.4 % (0.0-1.8); Eosinophils # (Auto) 0.1 K/mm3 (0.0-0.4); Eosinophils % (Auto) 1.3 % (0.0-4.3); Hematocrit 36.8 % (30.3-42.9); Hemoglobin 12.4 gm/dl (10.1-14.3); Lymphocytes # (Auto) 1.9 K/mm3 (1.2-5.4); Lymphocytes % (Auto) 35.5 % (13.4-35.0); Mean Corpuscular HGB Conc 34 % (30-34); Mean Corpuscular Hemoglobin 29 pg (28-32); Mean Corpuscular Volume 87 fl (79-97); Monocytes # (Auto) 0.4 K/mm3 (0.0-0.8); Monocytes % (Auto) 7.4 % (0.0-7.3); Platelet Count 152 K/mm3 (140-440); Red Blood Count 4.24 M/mm3 (3.65-5.03)
[2018-06-01 06:05] LABS: Alanine Aminotransferase 10 units/L (7-56); Albumin 4.1 g/dL (3.9-5); BUN/Creatinine Ratio 15; Blood Urea Nitrogen 6 mg/dL (7-17); Calcium 9.3 mg/dL (8.4-10.2); Hemolysis Index 17
--- NOTE | 2018-06-01 06:34 | Emergency Department Report ---
ED General Adult HPI - General Chief complaint: Urogenital-Female Stated complaint: VAGINAL DISCHARGE Time Seen by Provider: 06/01/18 06:11 Source: patient Mode of arrival: Ambulatory Limitations: No Limitations - History of Present Illness Initial comments: Patient presents to emergency department with complaint of vaginal discharge and lower abdominal cramping. The patient is approximately 11 weeks and states she is high risk. Patient follows Dr. Goldstein who is her APPLICATION SUPPORT TECHNICIAN. Patient states that she had a complete Pap smear and STD check on 05/03/2018 was told that she had bacterial vaginosis. Patient was given clindamycin cream but stated that the cream did not last for the duration of the intended treatment. Patient denies any vaginal bleeding but does complain of lower abdominal cramping with the discharge as consistent with the BV that she was diagnosed with. Patient states she has no concerns for STDs. -: Gradual - Related Data Home Medications Medication Instructions Recorded Confirmed Last Taken lamoTRIgine [Lamictal] 01/31/14 01/31/14 Unknown levETIRAcetam [Keppra] 01/31/14 01/31/14 Unknown Previous Rx's Medication Instructions Recorded Last Taken Type Fluticasone Propionate [Flonase] 16 gm NS BID #1 spray.susp 01/31/14 Unknown Rx Sulfamethoxazole/Trimethoprim 1 each PO BID #20 tablet 01/31/14 Unknown Rx [Bactrim Ds] Clindamycin [Clindamycin CAP] 300 mg PO Q6H #28 capsule 02/14/14 Unknown Rx HYDROcodone/APAP 10-325 [[place] 1 each PO Q6HR PRN #16 tablet 02/14/14 Unknown Rx 10/325] Ondansetron [Zofran Odt] 4 mg PO Q6H PRN #8 tab.rapdis 02/14/14 Unknown Rx predniSONE [Deltasone] 20 mg PO BID #10 tab 02/14/14 Unknown Rx Clindamycin Palmitate (Nf) 300 mg PO TID 10 Days ml 04/13/14 Unknown Rx [Cleocin Palmitate ORAL SOLN] Ondansetron [Zofran Odt] 8 mg PO TID #12 tab.rapdis 05/26/14 Unknown Rx Vits96/Iron Fum/Folic 1 each PO QDAY #30 tablet 05/26/14 Unknown Rx [ Tablet] Pyridoxine [Vitamin B-6] 75 mg PO DAILY #20 tablet 05/26/14 Unknown Rx Ibuprofen [Motrin] 600 mg PO Q8H PRN #40 tablet 08/27/15 Unknown Rx Cyclobenzaprine [Flexeril] 10 mg PO TID PRN #15 tablet 06/20/16 Unknown Rx Ibuprofen [Motrin] 800 mg PO Q8HR PRN #15 tablet 06/20/16 Unknown Rx Clindamycin 2% [Clindamycin 2% VAG 1 applicatio VG QHS #1 cream 06/01/18 Unknown Rx CREAM] Allergies Allergy/AdvReac Type Severity Reaction Status Date / Time Penicillins Allergy Rash Verified 06/01/18 04:34 hydrocodone bitartrate AdvReac Nausea Verified 06/01/18 04:34 [From Lortab] phenytoin sodium AdvReac Itching Verified 06/01/18 04:34 [From Dilantin] phenytoin sodium extended AdvReac Itching Verified 06/01/18 04:34 [From Dilantin] ED Review of Systems ROS: Stated complaint: VAGINAL DISCHARGE Other details as noted in HPI Comment: All other systems reviewed and negative Constitutional: denies: chills, fever Eyes: denies: eye pain, eye discharge, vision change ENT: denies: ear pain, throat pain Respiratory: denies: cough, shortness of breath, wheezing Cardiovascular: denies: chest pain, palpitations Endocrine: no symptoms reported Gastrointestinal: other (abdominal cramping). denies: abdominal pain, nausea, diarrhea Genitourinary: discharge. denies: urgency, dysuria Musculoskeletal: denies: back pain, joint swelling, arthralgia Skin: denies: rash, lesions Neurological: denies: headache, weakness, paresthesias Psychiatric: denies: anxiety, depression Hematological/Lymphatic: denies: easy bleeding, easy bruising ED Past Medical Hx - Past Medical History Hx GERD: Yes Hx Headaches / Migraines: Yes Hx Seizures: Yes - Surgical History Additional Surgical History: left ear surgery - Social History Smoking Status: Never Smoker Substance Use Type: None - Medications Home Medications: Home Medications Medication Instructions Recorded Confirmed Last Taken Type Fluticasone Propionate [Flonase] 16 gm NS BID #1 spray.susp 01/31/14 Unknown Rx Sulfamethoxazole/Trimethoprim 1 each PO BID #20 tablet 01/31/14 Unknown Rx [Bactrim Ds] lamoTRIgine [Lamictal] 01/31/14 01/31/14 Unknown History levETIRAcetam [Keppra] 01/31/14 01/31/14 Unknown History Clindamycin [Clindamycin CAP] 300 mg PO Q6H #28 capsule 02/14/14 Unknown Rx HYDROcodone/APAP 10-325 [[place] 1 each PO Q6HR PRN #16 tablet 02/14/14 Unknown Rx 10/325] Ondansetron [Zofran Odt] 4 mg PO Q6H PRN #8 tab.rapdis 02/14/14 Unknown Rx predniSONE [Deltasone] 20 mg PO BID #10 tab 02/14/14 Unknown Rx Clindamycin Palmitate (Nf) 300 mg PO TID 10 Days ml 04/13/14 Unknown Rx [Cleocin Palmitate ORAL SOLN] Ondansetron [Zofran Odt] 8 mg PO TID #12 tab.rapdis 05/26/14 Unknown Rx Vits96/Iron Fum/Folic 1 each PO QDAY #30 tablet 05/26/14 Unknown Rx [ Tablet] Pyridoxine [Vitamin B-6] 75 mg PO DAILY #20 tablet 05/26/14 Unknown Rx Ibuprofen [Motrin] 600 mg PO Q8H PRN #40 tablet 08/27/15 Unknown Rx Cyclobenzaprine [Flexeril] 10 mg PO TID PRN #15 tablet 06/20/16 Unknown Rx Ibuprofen [Motrin] 800 mg PO Q8HR PRN #15 tablet 06/20/16 Unknown Rx Clindamycin 2% [Clindamycin 2% VAG 1 applicatio VG QHS #1 cream 06/01/18 Unknown Rx CREAM] ED Physical Exam - General Limitations: No Limitations General appearance: alert, in no apparent distress - Head Head exam: Present: atraumatic, normocephalic - Eye Eye exam: Present: normal appearance, PERRL, EOMI - ENT ENT exam: Present: mucous membranes moist - Neck Neck exam: Present: normal inspection - Respiratory Respiratory exam: Present: normal lung sounds bilaterally. Absent: respiratory distress, wheezes, rales, rhonchi - Cardiovascular Cardiovascular Exam: Present: regular rate, normal rhythm. Absent: systolic murmur, diastolic murmur, rubs, gallop - GI/Abdominal GI/Abdominal exam: Present: soft, normal bowel sounds. Absent: distended, tenderness, guarding, rebound - Rectal Rectal exam: Present: deferred - External exam: Present: other (exam deferred) Speculum exam: Present: other (speculum exam deferred ) - Extremities Exam Extremities exam: Present: normal inspection - Back Exam Back exam: Present: normal inspection - Neurological Exam Neurological exam: Present: alert, oriented X3, CN II-XII intact. Absent: motor sensory deficit - Psychiatric Psychiatric exam: Present: normal affect, normal mood - Skin Skin exam: Present: warm, dry, intact, normal color. Absent: rash ED Course Vital Signs 06/01/18 06/01/18 06/01/18 04:25 04:34 05:35 Temperature 98.8 F 98.8 F Pulse Rate 75 71 Respiratory 18 18 16 Rate Blood Pressure 125/77 125/77 Blood Pressure [Left] O2 Sat by Pulse 100 Oximetry 06/01/18 07:06 Temperature Pulse Rate 74 Respiratory 18 Rate Blood Pressure Blood Pressure 122/68 [Left] O2 Sat by Pulse Oximetry ED Medical Decision Making - Lab Data Result diagrams: 06/01/18 05:20 06/01/18 05:20 - Medical Decision Making Patient politely declined a pelvic exam states she does have one in April and has no concerns for STDs. Delaying this bolus secondary to the overnight radiologist service not Providing a report. Discussed results with the patient Critical care attestation.: If time is entered above; I have spent that time in minutes in the direct care of this critically ill patient, excluding procedure time. ED Disposition Clinical Impression: Abdominal pain during , Vaginal discharge Disposition: TO HOME OR SELFCARE Is pt being admited?: No Does the pt Need Aspirin: No Condition: Stable Instructions: Abdominal Pain in (ED) Additional Instructions: Return if worse Prescriptions: Clindamycin 2% [Clindamycin 2% VAG CREAM] 1 applicatio VG QHS #1 cream Referrals: PRIMARY CARE, [Primary Care Provider] - 3-5 Days Time of Disposition: 09:25
[2018-06-01 07:06] VITALS: BP 122/68
--- NOTE | 2018-06-01 09:19 | Ultrasound Report ---
FINAL REPORT EXAM: US OB TRANSVAGINAL HISTORY: abdominal cramps TECHNIQUE: Transabdominal OB ultrasound. PRIORS: None currently available. FINDINGS: Single intrauterine dates 11.4 weeks by crown rump length. NICOLE equals December 17, 2018.. heart rate: 163. BPM. Uterus: 12.6 x 7.3 x 8.5 cm. Gestational sac, yolk sac, and pole identified. No subchorionic bleed. Right ovary: 3.5 x 2.3 x 1.9 cm. Within normal. Left Ovary: 4.8 x 2.4 x 3.0 cm. 1.7 cm cystic lesion may represent a corpus luteal cyst. Adnexal: Unremarkable. No free fluid. IMPRESSION: Single live intrauterine . Cyst corpus luteal cyst in the left ovary.
== END 2018-06-01 09:30 | disposition home or self-care (01) ==
LOC: ED 04:27
DX: O26.891 Other specified pregnancy related conditions, first trimester (principal); R10.30 Lower abdominal pain, unspecified; N89.8 Other specified noninflammatory disorders of vagina; O29.41 Spinal and epidural anesthesia induced headache during pregnancy, first trimester; O99.611 Diseases of the digestive system complicating pregnancy, first trimester; Z88.0 Allergy status to penicillin; Z88.6 Allergy status to analgesic agent; Z88.8 Allergy status to other drugs, medicaments and biological substances; Z3A.11 11 weeks gestation of pregnancy
CPT/HCPCS: 36415; 76817; 80053; 81001; 84702; 84703; 85025; 99284

== ENCOUNTER 2018-11-16 14:44 | Observation (INO) | payer MEDICAID ==
[2018-11-16] MEDS ORDERED: LACTATED RINGERS 500 ML IV ONE ×2 (15:25→17:05)
[2018-11-16] MEDS ORDERED: LACTATED RINGERS 1,000 ML ONE ×2 (15:43→15:44)
[2018-11-16 15:51] LABS: Bilirubin,Urine NEG (Negative); Blood,Urine NEG (Negative); Color,Urine Straw (Yellow); Mucus,Urine FEW /HPF; Protein,Urine <15 mg/dL mg/dL (Negative); RBC,Urine < 1.0 /HPF (0.0-6.0); Urobilinogen,Urine < 2.0 mg/dL (<2.0); WBC,Urine < 1.0 /HPF (0.0-6.0)
[2018-11-16] MEDS ORDERED: LACTATED RINGERS 1,000 ML IV SCH (16:00)
--- NOTE | 2018-11-16 17:26 | History and Physical Report ---
History of Present Illness Chief complaint: Uma said I was 4cm in office History of present illness: 28yo at 35 5/7weeks by LMP consistent with 31week kat presents stating she was sent by [facility] staff, Uma, because she was 4cm in office. She reports good movement, no loss of fluid and no vaginal bleeding. She reports 2 prior births at 36 weeks but states she is not receiving weekly progesterone therapy. She is a patient at [facility]. Her records are unavailable at this time. Her has been complicated by a history of seizure disorders. Her last seizure recorded in EMR was 01/2018. She was taking Keppra and Lamictal. Today she states she has not taken the medicine this because "I don't want my baby to be born with Down Syndrome." She states her daughter born at 36 weeks failed her initial hearing test and has difficulty eating and that's why she declines anti-seizure medication. She reports taking Folic acid and antibiotics for a tooth infection. She has a history of retained placenta in 2 previous pregnancies requiring D&C. Past History Past Medical History: seizure (Diagnosed age 15, last seizure 01/2018. Patient is not complaint with medication.), blood transfusion (with twin in 2013. Suspected septic due to patient history.), migraines Past Surgical History: D&C (x 2, after twin and marie delivery due to retained placenta) - Obstetrical History : 4 Number of Pregnancies: 2 Spontaneous Abortions: 1 Number of Living Children: 2 Medications and Allergies Allergies Allergy/AdvReac Type Severity Reaction Status Date / Time Penicillins Allergy Rash Verified 06/01/18 04:34 hydrocodone bitartrate AdvReac Nausea Verified 06/01/18 04:34 [From Lortab] phenytoin sodium AdvReac Itching Verified 06/01/18 04:34 [From Dilantin] phenytoin sodium extended AdvReac Itching Verified 06/01/18 04:34 [From Dilantin] Home Medications Medication Instructions Recorded Confirmed Last Taken Type lamoTRIgine [Lamictal] 1 tab PO QDAY 01/31/14 10/06/18 10/06/18 07:00 History Vits96/Iron Fum/Folic 1 each PO QDAY #30 tablet 05/26/14 10/06/18 10/06/18 12:00 Rx [ Tablet] Folic Acid [Folvite] 1 tab PO BID 10/06/18 10/06/18 10/06/18 12:00 History Active Meds: Active Medications Betamethasone Acet/Betameth SodPhos ([place] Soluspan) 12 mg IM Q24HR AMINATA Lactated Ringer's (Lactated Ringers) 1,000 mls @ 125 mls/hr IV DIRECT AMINATA Lactated Ringer's (Lactated Ringers) 500 mls @ 999 mls/hr IV BOLUS ONE Stop: 11/16/18 17:35 - Vital Signs Vital signs: Vital Signs Pulse BP 85 121/79 11/16/18 15:11 11/16/18 15:11 Temp Pulse Resp BP Pulse Ox 85 121/79 11/16/18 15:11 11/16/18 15:11 - Obstetrical FHR: category 1 Cervical Dilatation: 2 Cervical Effacement Percentage: 60 station: -3 Results All other labs normal. Assessment and Plan - Patient Problems (1) 35 weeks gestation of Current Visit: Yes Status: Acute Plan to address problem: 1. Betamethasone x 2 for reduction of morbidity and mortality from delivery 2. IVF - bolus and continuous, labs 3. Due to history of seizures will not administer terbutaline. Will start Procardia for tocolysis. 4. GBS culture done. 5. Continuous monitoring 6. Monitor for cervical change. (2) labor Current Visit: Yes Status: Acute (3) History of labor Current Visit: Yes Status: Acute (4) Seizure disorder Current Visit: Yes Status: Acute Plan to address problem: Patient declines seizure medications. She states she believes it affect her baby and will not take medication. Neuro consult. (5) History of blood transfusion Current Visit: Yes Status: Acute
[2018-11-16] MEDS ORDERED: PROCARDIA*For Tocolysis only PO ONE (17:40)
[2018-11-16] MEDS: CELESTONE SOLUSPAN IM SCH (18:12)
[2018-11-16 18:50] LABS: Basophils % (Auto) 0.5 % (0.0-1.8); Eosinophils # (Auto) 0.1 K/mm3 (0.0-0.4); Eosinophils % (Auto) 1.3 % (0.0-4.3); Hematocrit 35.9 % (30.3-42.9); Hemoglobin 12.2 gm/dl (10.1-14.3); Lymphocytes # (Auto) 1.4 K/mm3 (1.2-5.4); Lymphocytes % (Auto) 21.7 % (13.4-35.0); Mean Corpuscular HGB Conc 34 % (30-34); Mean Corpuscular Hemoglobin 29 pg (28-32); Mean Corpuscular Volume 86 fl (79-97); Monocytes # (Auto) 0.4 K/mm3 (0.0-0.8); Monocytes % (Auto) 5.9 % (0.0-7.3); Platelet Count 137 K/mm3 (140-440); Red Blood Count 4.18 M/mm3 (3.65-5.03); Red Cell Distribution Width 13.3 % (13.2-15.2)
[2018-11-16] MEDS ORDERED: MAGNESIUM SULFATE 4GM/100ML 4 GM/100 ML BAG IV ONE (19:08)
[2018-11-16] MEDS ORDERED: AFLURIA QUAD 2018-2019 SYRINGE IM ONE (19:11)
--- NOTE | 2018-11-16 19:20 | Event Note ---
S: Patient is experiencing painful contractions. She is s/p betamethasone and one dose of Procardia. O: FHT: Category I [place] Q1min Cervix 3/60/-3/cephalic A 35 57/weeks labor s/p BMZ x 1 PO s/p Procardia x 1 PO P 1. In light of cervical change will stop Procardia. Begin antiobiotics for GBS prophylaxis. She is s/p BMZ x 1 and will start Magnesium sulfate for tocolysis t o get second dose of BMZ in 24hrs. 2. Notify of NICU of labor. 3. GBS cultures pending
[2018-11-16] MEDS ORDERED: NARCAN 0.4 MG/1 ML IV PRN (19:22)
[2018-11-16] MEDS: MAGNESIUM SULFATE 40GM/1000ML 40 GM/1,000 ML BAG IV SCH (20:20)
[2018-11-16] MEDS: STADOL IV PRN (21:46)
[2018-11-16] MEDS: CLEOCIN 900 MG/50 mL 900 MG/50 ML BAG IV SCH (21:48)
[2018-11-17] MEDS: LACTATED RINGERS 1,000 ML IV SCH ×2 (00:52→13:05)
[2018-11-17] MEDS: STADOL IV PRN ×3 (03:40→09:13)
[2018-11-17] MEDS: CLEOCIN 900 MG/50 mL 900 MG/50 ML BAG IV SCH ×3 (05:28→23:25)
[2018-11-17] MEDS ORDERED: ZOFRAN IV PRN (08:14)
--- NOTE | 2018-11-17 11:54 | Progress Note ---
Assessment and Plan - Patient Problems (1) 35 weeks gestation of Onset Date: 11/17/18 Current Visit: Yes Status: Acute Plan to address problem: A: IUP @ 35 67/weeks labor s/p BMZ x 1 s/p Procardia x 1 PO P: Continue present management Continue IV Magnesium sulfate until second dose of BMZ @ 1815 today Notify of NICU of labor. GBS cultures pending (2) labor Onset Date: 11/17/18 Current Visit: Yes Status: Acute Qualifiers: labor trimester: third trimester Fetus number: single or unspecified fetus Subjective - Subjective Date of service: 11/17/18 Principal diagnosis: IUP @ 35 6/7 weeks; PTL Interval history: Pt is a 28yo BF EDC Patient reports: movement normal, contractions, no new complaints, no loss of fluid, no vaginal bleeding Objective - Vital Signs Vital Signs: Vital Signs - 12hr 11/17/18 11/17/18 11/17/18 00:04 01:03 02:03 Temperature Pulse Rate 92 H 93 H 98 H Respiratory Rate Blood Pressure 114/64 124/66 131/68 Blood Pressure [Left] 11/17/18 11/17/18 11/17/18 03:02 03:40 03:42 Temperature 96.8 F L Pulse Rate 105 H 83 Respiratory 18 18 Rate Blood Pressure 120/73 123/70 Blood Pressure 123/70 [Left] 11/17/18 11/17/18 11/17/18 04:03 04:10 05:02 Temperature Pulse Rate 93 H 85 Respiratory 18 Rate Blood Pressure 120/67 119/69 Blood Pressure [Left] 11/17/18 11/17/18 11/17/18 06:02 07:03 08:02 Temperature Pulse Rate 93 H 98 H 94 H Respiratory Rate Blood Pressure 115/72 124/70 147/79 Blood Pressure [Left] 11/17/18 11/17/18 11/17/18 08:59 09:02 10:03 Temperature Pulse Rate 100 H 92 H 93 H Respiratory Rate Blood Pressure 116/71 115/65 118/71 Blood Pressure [Left] 11/17/18 11:03 Temperature Pulse Rate 97 H Respiratory Rate Blood Pressure 123/76 Blood Pressure [Left] - Exam Abdomen: Present: normal appearance, soft Uterus: Present: normal FHR: category 1 Uterine Contraction Monitor Mode: External Cervical Dilatation: 3.5 Cervical Effacement Percentage: 60 station: -3 Uterine Contraction Pattern: Irregular Uterine Tone Measurement Phase: Contraction Uterine Contraction Intensity: Mild - Labs Labs: Abnormal Labs 11/16/18 18:23 Plt Count 137 L Seg Neutrophils % 70.6 H Laboratory Results - last 24 hr 11/16/18 11/16/18 11/16/18 15:30 18:23 18:23 WBC 6.4 RBC 4.18 Hgb 12.2 Hct 35.9 MCV 86 MCH 29 MCHC 34 RDW 13.3 Plt Count 137 L Lymph % (Auto) 21.7 [place] % (Auto) 5.9 Eos % (Auto) 1.3 Baso % (Auto) 0.5 Lymph # 1.4 [place] # 0.4 Eos # 0.1 Baso # 0.0 Seg Neutrophils % 70.6 H Seg Neutrophils # 4.5 Urine Color Straw Urine Turbidity Clear Urine pH 6.0 Ur Specific [place] 1.006 Urine Protein <15 mg/dl Urine Glucose (UA) Neg Urine Ketones Tr Urine Blood Neg Urine Nitrite Neg Urine Bilirubin Neg Urine Urobilinogen < 2.0 Ur Leukocyte Esterase Neg Urine WBC (Auto) < 1.0 Urine RBC (Auto) < 1.0 Urine Mucus Few Blood Type B POSITIVE Antibody Screen Negative
[2018-11-17] MEDS: MAGNESIUM SULFATE 40GM/1000ML 40 GM/1,000 ML BAG IV SCH ×2 (13:06→13:13)
[2018-11-17] MEDS: CELESTONE SOLUSPAN IM SCH (18:25)
[2018-11-18] MEDS: LACTATED RINGERS 1,000 ML IV SCH (03:46)
[2018-11-18] MEDS: CLEOCIN 900 MG/50 mL 900 MG/50 ML BAG IV SCH (05:47)
--- NOTE | 2018-11-18 09:59 | Progress Note ---
Assessment and Plan - Patient Problems (1) 36 weeks gestation of Current Visit: Yes Status: Acute (2) labor Onset Date: 11/17/18 Current Visit: Yes Status: Acute Qualifiers: labor trimester: third trimester Fetus number: single or unspecified fetus Plan to address problem: Patient has not been precious for over 24 hrs and has made no cervical changes. Fetus is VTX by sonogram. tracing is reassuring. Will discharge patient home with labor precautions. If she contracts again, will not stop her labor and will do expectant management. She is to follow up at [facility] in 2 days. She also has appt with [facility] on 11/25/18. Subjective - Subjective Date of service: 11/18/18 Principal diagnosis: SIUP at 36 weeks with PTL Interval history: Patient was admitted 2 days ago for contractions. Her cervix was 3 cm dilated. She was treated with magnesium, antibiotics for GBS prophylaxis, and celestone for FLM mainly due to unsure gestational age. Her contractions stopped and she has made no further cervical changes. This AM, she denies any contractions, fluid leakage or bleeding. Cervix: 3cm/50%/-2. Fundal height is 36 cm. Patient reports: movement normal, contractions, no new complaints, no loss of fluid, no vaginal bleeding Objective - Vital Signs Vital Signs: Vital Signs - 12hr 11/17/18 11/17/18 11/17/18 22:00 22:02 23:02 Temperature Pulse Rate 82 95 H 101 H Respiratory 12 Rate Blood Pressure 123/74 105/56 Blood Pressure 122/62 [Left] O2 Sat by Pulse Oximetry 11/18/18 11/18/18 11/18/18 00:00 00:03 02:00 Temperature 97.6 F Pulse Rate 80 93 H 84 Respiratory 12 12 Rate Blood Pressure 118/69 Blood Pressure 122/64 122/60 [Left] O2 Sat by Pulse 99 Oximetry 11/18/18 11/18/18 11/18/18 03:00 04:00 05:00 Temperature 97.8 F Pulse Rate 80 84 88 Respiratory 14 14 14 Rate Blood Pressure Blood Pressure 122/60 116/62 115/62 [Left] O2 Sat by Pulse Oximetry 11/18/18 11/18/18 11/18/18 05:45 06:00 06:16 Temperature Pulse Rate 84 90 90 Respiratory 14 Rate Blood Pressure 100/56 115/62 Blood Pressure 115/60 [Left] O2 Sat by Pulse Oximetry 11/18/18 11/18/18 11/18/18 07:03 08:02 08:37 Temperature 97.4 F L Pulse Rate 104 H 91 H 87 Respiratory 16 Rate Blood Pressure 108/59 106/69 Blood Pressure 111/67 [Left] O2 Sat by Pulse Oximetry 11/18/18 11/18/18 08:38 09:04 Temperature Pulse Rate 87 82 Respiratory Rate Blood Pressure 111/67 125/70 Blood Pressure [Left] O2 Sat by Pulse Oximetry - Exam Cardiovascular: Normal S1, Normal S2 Lungs: Clear to auscultation Vulva: both: normal FHR: category 1 Uterine Contraction Monitor Mode: External Cervical Dilatation: 3 Cervical Effacement Percentage: 50 station: -2 Uterine Contraction Pattern: Absent Deep Tendon Reflex Grade: Normal +2 - Labs Labs: Abnormal Labs 11/16/18 11/17/18 11/18/18 18:23 18:03 01:00 Plt Count 137 L Seg Neutrophils % 70.6 H Magnesium 6.30 H 6.00 H Laboratory Results - last 24 hr 11/17/18 11/18/18 18:03 01:00 Magnesium 6.30 H 6.00 H - Results US- obstetric: report reviewed
[2018-11-18 10:04] VITALS: BP 122/72
== END 2018-11-18 13:55 | disposition home or self-care (01) ==
LOC: TRG 14:44 → LD 15:25 → TRG 15:25
PROVIDERS: ADMIT Obstetrics & Gynecology; ATTEND Obstetrics & Gynecology
DX: O60.03 Preterm labor without delivery, third trimester (principal); O99.353 Diseases of the nervous system complicating pregnancy, third trimester; G40.909 Epilepsy, unspecified, not intractable, without status epilepticus; Z3A.35 35 weeks gestation of pregnancy
CPT/HCPCS: 36415; 81001; 83735; 85025; 86850; 86900; 86901; 87116; 96365; 96366; 96368; 96372; 96375; 96376; G0378; J0595; J0702; J2405; J3475; J7120; 90686

== ENCOUNTER 2018-12-03 08:16 | Outpatient (CLI) | payer MEDICAID ==
[2018-12-03 16:19] VITALS: BP 114/72
[2018-12-03] MEDS ORDERED: VISTARIL PO ONE (16:36)
== END 2018-12-03 16:58 | disposition home or self-care (01) ==
LOC: TRG 08:16 → LD 16:01 → TRG 16:58
PROVIDERS: ATTEND Obstetrics & Gynecology
DX: O47.1 False labor at or after 37 completed weeks of gestation (principal); Z3A.38 38 weeks gestation of pregnancy; Z91.040 Latex allergy status
CPT/HCPCS: 59025; Q0177

== ENCOUNTER 2018-12-05 23:56 | Outpatient (CLI) | payer MEDICAID | END 2018-12-06 02:48 | disposition home or self-care (01) | LOC: TRG 23:56 | CPT/HCPCS: 59025 ==

== ENCOUNTER 2018-12-09 14:22 | Inpatient (IN) | payer MEDICAID ==
[2018-12-09] MEDS ORDERED: LACTATED RINGERS 1,000 ML ONE (14:50)
[2018-12-09 16:45] LABS: Hemoglobin 11.9 gm/dl (10.1-14.3); Mean Corpuscular HGB Conc 34 % (30-34); Mean Corpuscular Volume 87 fl (79-97); Platelet Count 143 K/mm3 (140-440); Red Blood Count 4.04 M/mm3 (3.65-5.03); Red Cell Distribution Width 13.6 % (13.2-15.2)
[2018-12-09] MEDS ORDERED: PITOCin/NS 20 UNIT/1000ML DRIP 20 UNITS/1,000 ML BAG IV SCH ×3 (17:00→23:45)
[2018-12-09] MEDS ORDERED: LACTATED RINGERS 1,000 ML IV SCH ×2 (17:00→19:00)
--- NOTE | 2018-12-09 18:12 | History and Physical Report ---
History of Present Illness Date of examination: 12/09/18 Date of admission: 12/09/18 16:59 Chief complaint: Labor History of present illness: Pt is a 28yo BF EDC 12/16/18; EGA 39 0/7 weeks presents to L&D complaining of RUC's q 3-4 mins. She received care at [facility] and co-managed by [facility] for her seizure disorder. records are available and GBS is Positive. Past History Past Medical History: seizure Past Surgical History: no surgical history Family/Genetic History: none Social history: no significant social history, single - Obstetrical History Expected Date of Delivery: 12/16/18 Actual Gestation: 39 Week(s) 0 Day(s) : 5 Medications and Allergies Allergies Allergy/AdvReac Type Severity Reaction Status Date / Time Penicillins Allergy Rash Verified 12/09/18 14:48 hydrocodone bitartrate AdvReac Nausea Verified 12/09/18 14:48 [From Lortab] latex AdvReac Swelling Verified 12/09/18 14:48 phenytoin sodium AdvReac Itching Verified 12/09/18 14:48 [From Dilantin] phenytoin sodium extended AdvReac Itching Verified 12/09/18 14:48 [From Dilantin] Home Medications Medication Instructions Recorded Confirmed Last Taken Type lamoTRIgine [Lamictal] 1 tab PO QDAY 01/31/14 12/06/18 10/06/18 07:00 History Vits96/Iron Fum/Folic 1 each PO QDAY #30 tablet 05/26/14 12/06/18 12/05/18 Rx [ Tablet] Folic Acid [Folvite] 1 tab PO BID 10/06/18 12/06/18 12/05/18 History Active Meds: Active Medications Lactated Ringer's (Lactated Ringers) 1,000 mls @ 125 mls/hr IV DIRECT AMINATA Oxytocin/Sodium Chloride (Pitocin/Ns 20 Unit/1000ml Drip) 20 units in 1,000 mls @ 0 mls/hr IV DIRECT AMINATA Clindamycin HCl (Cleocin 900 Mg/50 Ml) 900 mg in 50 mls @ 100 mls/hr IV Q8HR AMINATA; Protocol Review of Systems All systems: negative - Vital Signs Vital signs: Vital Signs Temp Pulse Resp BP 97.5 F L 102 H 20 114/78 12/09/18 14:32 12/09/18 14:32 12/09/18 14:32 12/09/18 14:32 Temp Pulse Resp BP Pulse Ox 97.5 F L 79 20 117/70 96 12/09/18 14:32 12/09/18 17:56 12/09/18 14:32 12/09/18 17:07 12/09/18 17:56 - Physical Exam Breasts: Positive: deferred Cardiovascular: Regular rate Lungs: Positive: Clear to auscultation Abdomen: Positive: normal appearance Genitourinary (Female): Positive: normal external genitalia Vagina: Positive: normal moisture Uterus: Positive: enlarged Extremities: Positive: normal - Obstetrical FHR: category 1 Uterine Contraction Monitor Mode: External Cervical Dilatation: 5.5 (per nurse) Cervical Effacement Percentage: 70 (per nurse) station: -3 Uterine Contraction Pattern: Regular Uterine Tone Measurement Phase: Contraction Uterine Contraction Intensity: Moderate Results Result Diagrams: 12/09/18 15:15 All other labs normal. Assessment and Plan - Patient Problems (1) 39 weeks gestation of Onset Date: 12/09/18 Current Visit: Yes Status: Acute Plan to address problem: A: IUP @ 39 0/7 weeks Seizure disorder +GBS P: Admit to L&D for expectant vaginal delivery IV Clindamycin (2) Seizure disorder Onset Date: 12/09/18 Current Visit: No Status: Acute
[2018-12-09] MEDS: CLEOCIN 900 MG/50 mL 900 MG/50 ML BAG IV SCH ×2 (18:14→22:25)
[2018-12-09] MEDS ORDERED: SUBLIMAZE IV PRN (18:16)
[2018-12-09] MEDS ORDERED: MINERAL OIL PO PRN (18:16)
[2018-12-09] MEDS ORDERED: BRETHINE SUB-Q PRN (18:16)
[2018-12-09] MEDS ORDERED: STADOL IV PRN (18:16)
[2018-12-09] MEDS ORDERED: BRETHINE IVP PRN (18:16)
[2018-12-09] MEDS ORDERED: XYLOCAINE 2% INFILTRATI ONE (18:16)
[2018-12-09] MEDS ORDERED: ZOFRAN IV PRN ×2 (18:16→23:53)
[2018-12-09] MEDS ORDERED: PITOCin/NS 30 UNIT/500ML 30 UNITS/500 ML BAG IV SCH ×2 (19:00)
[2018-12-09] MEDS ORDERED: NARCAN 2 MG/2 ML IV PRN (23:14)
--- NOTE | 2018-12-09 23:17 | Anesthesia Consultation ---
Anesthesia Consult and Med Hx Date of service: 12/09/18 - Airway Anesthetic Teeth Evaluation: Chipped ROM Head & Neck: Adequate Mental/Hyoid Distance: Adequate Mallampati Class: Class II - Pulmonary Exam CTA: Yes - Cardiac Exam Cardiac Exam: RRR - Pre-Operative Health Status ASA Pre-Surgery Classification: ASA2 Proposed Anesthetic Plan: Epidural - Pulmonary Hx Smoking: No Hx Asthma: No Hx Respiratory Symptoms: No SOB: No COPD: No Home Oxygen Therapy: No Hx Pneumonia: No Hx Sleep Apnea: No - Cardiovascular System Hx Hypertension: No Hx Coronary Artery Disease: No Hx Heart Attack/AMI: No Hx Angina: No Hx Percutaneous Transluminal Coronary Angioplasty (PTCA): No Hx Cardia Arrhythmia: No Hx Pacemaker: No Hx Internal Defibrillator: No Hx Valvular Heart Disease: No Hx Heart Murmur: No Hx Peripheral Vascular Disease: No - Central Nervous System Hx Neuromuscular Disorder: No Hx Seizures: Yes CVA: No Hx Back Pain: No Hx Psychiatric Problems: No - Gastrointestinal Hx Ulcer: No Hx Gastroesophageal Reflux Disease: No - Endocrine Hx Renal Disease: No Hx End Stage Renal Disease: No Hx Cirrhosis: No Hx Liver Disease: No Hx Insulin Dependent Diabetes: No Hx Non-Insulin Dependent Diabetes: No Hx Thyroid Disease: No Hx Hypothyroidism: No Hx Hyperthyroidism: No - Hematic Hx Anemia: Yes Hx Sickle Cell Disease: Yes (trait) - Other Systems Hx Alcohol Use: No Hx Substance Use: No Hx Cancer: No Hx Obesity: No
[2018-12-09] MEDS ORDERED: SODIUM CHLORIDE FLUSH SYRINGE 10 ML IV NR (23:45)
[2018-12-09] MEDS ORDERED: fentaNYL-BUPIV 2 MCG/ML-0.125% 200 MCG/100 ML BAG EPIDURAL SCH (23:45)
--- NOTE | 2018-12-09 23:47 | Procedure Note ---
OB Delivery Note - Delivery Date of Delivery: 12/09/18 Surgeon: JODIE NYE Estimated blood loss: 100cc - Vaginal Delivery presentation: vertex Delivery position: OP Intrapartum events: none Delivery induction: none Delivery augmentation: rupture of membranes, pitocin Delivery monitor: external FHT, external uterine Route of delivery: Delivery placenta: spontaneous Delivery cord: 3 umbilical vessels Episiotomy: none Delivery laceration: none Anesthesia: epidural Delivery comments: delivered OP and placed on Mom's chest for [id number] bonding and delayed cord clamping, cut by Dad - Infant A at 1 minute: 9 at 5 minutes: 9 Gender: Female (3225gms)
[2018-12-09] MEDS ORDERED: NORCO 5/325 PO PRN (23:53)
[2018-12-09] MEDS ORDERED: PHENERGAN PO PRN (23:53)
[2018-12-09] MEDS ORDERED: DULCOLAX PR PRN (23:53)
[2018-12-09] MEDS ORDERED: TUCKS PAD TP PRN (23:53)
[2018-12-09] MEDS ORDERED: LANSINOH TP PRN (23:53)
[2018-12-09] MEDS ORDERED: PHENERGAN PR PRN (23:53)
[2018-12-09] MEDS ORDERED: MILK OF MAGNESIA PO PRN (23:53)
[2018-12-09] MEDS ORDERED: TYLENOL PO PRN (23:53)
[2018-12-10] MEDS ORDERED: SENOKOT S PO SCH
[2018-12-10] MEDS: LaMICtal PO SCH ×3 (00:41→22:42)
[2018-12-10] MEDS: IBUPROFEN PO SCH ×3 (05:20→17:51)
[2018-12-10] MEDS: BENADRYL PO PRN (05:31)
[2018-12-10] MEDS ORDERED: M-M-R II VACCINE SUB-Q ONE (06:00)
[2018-12-10] MEDS ORDERED: BOOSTRIX IM ONE (06:00)
--- NOTE | 2018-12-10 11:20 | Progress Note ---
Assessment and Plan - Patient Problems (1) 39 weeks gestation of Onset Date: 12/09/18 Current Visit: Yes Status: Resolved (2) Seizure disorder Onset Date: 12/09/18 Current Visit: No Status: Chronic (3) (normal spontaneous vaginal delivery) Onset Date: 12/10/18 Current Visit: Yes Status: Resolved Plan to address problem: A: S/P - PPD #1 Doing well Asymptomatic anemia - stable P: May go home tomorrow. Subjective - Subjective Date of service: 12/10/18 Principal diagnosis: s/p - PPD #1 Interval history: Pt is feeling well without complaints. Bleeding improved. Patient reports: appetite normal, voiding normally, pain well controlled, flatus, ambulating normally, no dizzy ambulation, no nauseated : doing well, bottle feeding Objective - Vital Signs Latest vital signs: Vital Signs Temp Pulse Resp BP BP BP Pulse Ox 12/10/18 08:35 98.6 F 77 16 110/61 98 12/10/18 06:27 98.2 F 74 18 115/79 12/10/18 01:40 98.2 F 80 16 112/73 99 12/10/18 01:38 98.3 F 12/10/18 01:16 90 115/64 12/10/18 01:01 77 124/68 12/10/18 00:47 77 131/63 12/10/18 00:16 77 128/67 12/10/18 00:01 88 145/91 12/09/18 23:44 101 H 107/55 12/09/18 23:42 104 H 106/66 12/09/18 23:40 102 H 114/65 12/09/18 23:38 98.9 F 105 H 120/59 12/09/18 23:36 97 H 118/57 12/09/18 23:34 96 H 130/62 12/09/18 23:33 104 H 142/63 12/09/18 23:31 101 H 162/66 12/09/18 23:26 93 H 99 12/09/18 23:25 97 H 127/58 12/09/18 23:23 107 H 75 L 12/09/18 23:22 102 H 144/64 12/09/18 23:21 85 96 12/09/18 23:20 86 127/63 12/09/18 23:19 97 H 120/71 12/09/18 23:17 98 H 116/53 12/09/18 23:16 95 H 100 12/09/18 23:14 107 H 133/84 12/09/18 23:11 101 H 134/69 93 12/09/18 23:08 100 H 130/70 12/09/18 23:06 97 H 136/61 98 12/09/18 23:01 104 H 78 L 12/09/18 23:00 102 H 147/70 12/09/18 22:59 105 H 153/74 12/09/18 22:57 98 H 93 12/09/18 22:56 105 H 161/96 100 12/09/18 22:53 101 H 180/89 12/09/18 22:51 100 H 94 12/09/18 22:49 102 H 99 12/09/18 22:44 101 H 98 12/09/18 21:55 73 130/83 12/09/18 21:25 72 119/75 12/09/18 20:55 71 126/74 12/09/18 20:24 75 114/70 12/09/18 20:10 18 12/09/18 20:00 97.8 F 12/09/18 19:54 79 122/80 12/09/18 19:16 85 97 12/09/18 19:11 90 97 12/09/18 19:06 88 97 12/09/18 19:01 78 98 12/09/18 18:56 83 97 12/09/18 18:51 88 98 12/09/18 18:46 83 96 12/09/18 18:41 87 99 12/09/18 18:36 87 99 12/09/18 18:31 80 98 12/09/18 18:26 76 97 12/09/18 18:21 71 96 12/09/18 18:16 84 97 12/09/18 18:11 92 H 99 12/09/18 18:06 76 96 12/09/18 18:01 77 95 12/09/18 17:56 79 96 12/09/18 17:51 74 94 12/09/18 17:46 82 96 12/09/18 17:41 83 97 12/09/18 17:36 91 H 96 12/09/18 17:31 85 95 12/09/18 17:26 79 98 12/09/18 17:21 81 97 12/09/18 17:16 83 96 12/09/18 17:11 87 98 12/09/18 17:07 76 117/70 12/09/18 17:06 79 96 12/09/18 17:01 96 H 97 12/09/18 14:32 97.5 F L 102 H 20 114/78 Intake and Output 12/09/18 12/10/18 12/10/18 22:59 06:59 14:59 Intake Total 63.900 240 120 Output Total 0 Balance 63.900 -1810 120 Intake: IV 63.900 CLEOCIN 900 MG/50 mL 900 50 mg In 50 ml @ 100 mls/hr IV Q8HR AMINATA Rx#:[id number] PITOCin/NS 30 UNIT/500ML 13.900 30 units In 500 ml @ 2 MILLIUNITS/MIN 2 mls/hr IV TITR AMINATA Rx#:[id number] Oral 120 Intake, Free Water 240 Output: Urine 2049 Uretheral (Scott) 300 Void 1750 Other: Total, Intake Amount 120 Total, Output Amount 450 # Voids Void 1 1 Estimated Blood Loss 100 - Exam Breasts: Present: deferred Abdomen: Present: normal appearance, soft Uterus: Present: normal, firm, fundal height below umbilicus Extremities: Present: normal - Labs Labs: Laboratory Tests 12/09/18 12/09/18 12/10/18 15:15 15:15 13:48 WBC 5.5 RBC 4.04 Hgb 11.9 11.5 Hct 35.0 33.1 MCV 87 MCH 30 MCHC 34 RDW 13.6 Plt Count 143 Blood Type B POSITIVE Antibody Screen Negative
[2018-12-10] MEDS: FEOSOL PO SCH ×2 (12:49→22:42)
[2018-12-10] MEDS: PRENATAL VITAMIN PO SCH (12:49)
[2018-12-10] MEDS: COLACE PO SCH ×2 (12:49→22:42)
[2018-12-10 13:59] LABS: Hematocrit 33.1 % (30.3-42.9); Hemoglobin 11.5 gm/dl (10.1-14.3)
[2018-12-11] MEDS: IBUPROFEN PO SCH ×3 (00:18→17:00)
[2018-12-11] MEDS: BENADRYL PO PRN (05:04)
[2018-12-11] MEDS ORDERED: DIFLUCAN PO ONE (08:35)
--- NOTE | 2018-12-11 08:36 | Discharge Summary ---
Providers - Providers Date of Admission: 12/09/18 16:59 Date of discharge: 12/11/18 Attending physician: JODIE NYE Primary care physician: JDOIE NYE Hospitalization Reason for admission: active labor, IUP at term Delivery: Episiotomy: none Laceration: none Other procedures: none complications: none Discharge diagnosis: IUP at term delivered [place] baby: female Hospital course: Unremarkable. Condition at discharge: Good Disposition: DC-01 TO HOME OR SELFCARE - Discharge Diagnoses (1) 39 weeks gestation of Status: Resolved (2) Seizure disorder Status: Chronic (3) (normal spontaneous vaginal delivery) Status: Resolved Plan - Discharge Medications Prescriptions: Ferrous Sulfate [Feosol 325 MG tab] 325 mg PO BID #60 tablet Fluconazole [Diflucan TAB] 150 mg PO ONCE #1 tablet Ibuprofen [Motrin 600 MG tab] 600 mg PO Q6H #30 tablet lamoTRIgine [LaMICtal] 200 mg PO BID #60 tablet Vit-Fe Fumar-FA [ Vitamin] 1 each PO QDAY #30 tablet - Provider Discharge Summary Activity: routine, no sex for 6 weeks, no heavy lifting 4 weeks, no strenuous exercise Diet: routine Instructions: routine Additional instructions: [] Smoking cessation referral if applicable(refer to patient education folder for contact #) [] Refer to [facility]'s [facility] Booklet Call your doctor immediately for: * Fever > 100.5 * Heavy vaginal bleeding ( >1 pad per hour) * Severe persistent headache * Shortness of breath * Reddened, hot, painful area to leg or breast * Drainage or odor from incision. * Keep incision clean and dry at all times and follow doctor's instructions regarding bathing/showering - Follow up plan Follow up: JODIE NYE MD [Primary Care Provider] - 6 Weeks
[2018-12-11] MEDS: FEOSOL PO SCH ×2 (09:55→21:34)
[2018-12-11] MEDS: LaMICtal PO SCH (09:55)
[2018-12-11] MEDS: COLACE PO SCH (09:55)
[2018-12-11] MEDS: PRENATAL VITAMIN PO SCH (09:55)
[2018-12-11 21:33] VITALS: BP 131/80
== END 2018-12-11 21:50 | disposition home or self-care (01) | DRG 775 ==
LOC: TRG 14:22 → LD 16:59 → OB 12-10 01:52
PROVIDERS: ADMIT Obstetrics & Gynecology; ATTEND Obstetrics & Gynecology
PROC: 10E0XZZ Delivery of Products of Conception, External Approach (ICD-10-PCS; principal; 2018-12-09)
PROC: 3E0R3BZ Introduction of Anesthetic Agent into Spinal Canal, Percutaneous Approach (ICD-10-PCS; 2018-12-09)
PROC: 00HU33Z Insertion of Infusion Device into Spinal Canal, Percutaneous Approach (ICD-10-PCS; 2018-12-09)
PROC: 3E0234Z Introduction of Serum, Toxoid and Vaccine into Muscle, Percutaneous Approach (ICD-10-PCS; 2018-12-10)
DX: O99.354 Diseases of the nervous system complicating childbirth (principal); G40.909 Epilepsy, unspecified, not intractable, without status epilepticus; O99.02 Anemia complicating childbirth; D64.9 Anemia, unspecified; O99.824 Streptococcus B carrier state complicating childbirth; Z3A.39 39 weeks gestation of pregnancy; Z37.0 Single live birth; Z88.0 Allergy status to penicillin; Z88.5 Allergy status to narcotic agent; Z91.040 Latex allergy status; Z79.899 Other long term (current) drug therapy; Z23 Encounter for immunization
CPT/HCPCS: 36415; 85014; 85018; 85027; 86850; 86900; 86901; 90471; 90715; G0378; J0595; J2590; J7120

== ENCOUNTER 2020-10-11 04:19 | Inpatient (IN) | payer MEDICAID ==
[2020-10-11] MEDS ORDERED: ONDANSETRON 4 MG/2 ML INJ IV PRN (05:06)
[2020-10-11] MEDS ORDERED: TERBUTALINE 1 MG/1 ML INJ SUB-Q PRN (05:06)
[2020-10-11] MEDS ORDERED: ePHEDrine SULFATE 50 MG/1 ML INJ IV PRN (05:06)
[2020-10-11] MEDS ORDERED: AMPICILLIN/NS 2 GM/100 ML 2 GM/100 ML BAG IV ONE (05:06)
[2020-10-11] MEDS ORDERED: LIDOCAINE (2%) 20 MG/1 ML VIAL 20 ML MDV INFILTRATI ONE (05:06)
[2020-10-11] MEDS ORDERED: MINERAL OIL 30 ML ORAL LIQD PO PRN (05:06)
[2020-10-11 05:43] LABS: Hematocrit 32.2 % (30.3-42.9); Hemoglobin 10.8 gm/dl (10.1-14.3); Mean Corpuscular HGB Conc 34 % (30-34); Mean Corpuscular Volume 83 fl (79-97); Platelet Count 154 K/mm3 (140-440); Red Blood Count 3.89 M/mm3 (3.65-5.03)
[2020-10-11] MEDS: fentaNYL 100 MCG/2 ML INJ IV PRN ×2 (05:58→08:16)
[2020-10-11] MEDS: LACTATED RINGERS 1,000 ML IV SCH ×2 (05:59→07:39)
[2020-10-11] MEDS ORDERED: OXYTOCIN DRIP 30 UNITS/500 ML BAG IV SCH (06:00)
[2020-10-11] MEDS ORDERED: miSOPROStol 200 MCG TAB ONE (08:25)
[2020-10-11] MEDS ORDERED: miSOPROStol 200 MCG TAB PR ONE (08:25)
[2020-10-11] MEDS ORDERED: miSOPROStol 100 MCG TAB ONE (08:25)
--- NOTE | 2020-10-11 08:59 | Procedure Note ---
OB Delivery Note - Delivery Date of Delivery: 10/11/20 (0819) Surgeon: YO ENRIQUEZ Estimated blood loss: other (350) - Vaginal Delivery presentation: vertex Delivery position: OA Intrapartum events: none Delivery induction: none Delivery augmentation: rupture of membranes (AROM of moderate amount of clear fluid) Delivery monitor: external FHT, external uterine Route of delivery: Delivery placenta: spontaneous Delivery cord: 3 umbilical vessels Episiotomy: none Delivery laceration: none Anesthesia: none Delivery comments: of a live 7'6 male over a intact perineum under IV pain control with Apgars of 8 and 9 at 0819 on 10/11/2020. directly to maternal abd/chest, skin to skin contact. Spontaneous delivery of placenta complete and intact with [place] side presenting at 0822. Heavy uterine bleeding after placenta delivery. 1000mcg of Cytotec placed per rectum, Bleeding then became scant with external uterine massage. Delayed cord clamping and cutting; Cord cut by maternal grandmother. GBS prophylaxis x 1.
[2020-10-11] MEDS ORDERED: diphenhydrAMINE 25 MG CAP PO PRN (09:00)
[2020-10-11] MEDS ORDERED: HYDROcodone/ACETAMINOPHEN 5-325 MG TAB PO PRN (09:00)
[2020-10-11] MEDS ORDERED: WITCH HAZEL/ GLYCERIN PAD TP PRN (09:00)
--- NOTE | 2020-10-11 12:50 | History and Physical Report ---
History of Present Illness Date of examination: 10/11/20 Date of admission: 10/11/20 05:07 Chief complaint: Intense Labor Pains History of present illness: Early entry to care at [facility], course complicated by a history of Epilepsy, Co-managed with [facility] and Neurology. Did not take Keppra/Lamictal as recommended. 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 Past History Past Medical History: seizure Past Surgical History: no surgical history [employer] History: herpes Family/Genetic History: hypertension (Mother and Sister) Social history: no significant social history, single - Obstetrical History Expected Date of Delivery: 10/21/20 Actual Gestation: 38 Week(s) 4 Day(s) : 5 Para: 3 Hx # Term Pregnancies: 2 Number of Pregnancies: 1 Spontaneous Abortions: 1 Number of Living Children: 3 Medications and Allergies Allergies Allergy/AdvReac Type Severity Reaction Status Date / Time Penicillins Allergy Rash Verified 12/09/18 14:48 hydrocodone bitartrate AdvReac Nausea Verified 12/09/18 14:48 [From Lortab] latex AdvReac Swelling Verified 12/09/18 14:48 phenytoin sodium AdvReac Itching Verified 12/09/18 14:48 [From Dilantin] phenytoin sodium extended AdvReac Itching Verified 12/09/18 14:48 [From Dilantin] Home Medications Medication Instructions Recorded Confirmed Last Taken Type Vits96/Iron Fum/Folic 1 each PO QDAY #30 tablet 05/26/14 10/11/20 12/05/18 Rx [ Tablet] Folic Acid [Folvite] 1 tab PO BID 10/06/18 10/11/20 10/10/20 History Ferrous Sulfate [Feosol 325 MG tab] 325 mg PO BID #60 tablet 12/11/18 10/11/20 10/09/20 Rx lamoTRIgine [LaMICtal] 200 mg PO BID #60 tablet 12/11/18 10/11/20 01/07/20 Rx Active Meds: Active Medications Hydrocodone Bitart/Acetaminophen ([place] 5/325) 2 each PO Q6H PRN PRN Reason: Pain, Moderate (4-6) Bisacodyl (Dulcolax) 10 mg MA BID PRN PRN Reason: Constipation Diphenhydramine HCl (Benadryl) 25 mg PO Q6H PRN PRN Reason: Itching Ephedrine Sulfate (Ephedrine Sulfate) 10 mg IV Q2M PRN PRN Reason: Hypotension Fentanyl (Sublimaze) 100 mcg IV Q2H PRN PRN Reason: Pain,Severe (7-10) LABOR PAIN Last Admin: 10/11/20 08:16 Dose: 100 mcg Documented by: Lactated Ringer's (Lactated Ringers) 1,000 mls @ 125 mls/hr IV DIRECT AMINATA Last Admin: 10/11/20 07:39 Dose: 1,200 mls/hr Documented by: Oxytocin/Sodium Chloride (Pitocin/Ns 30 Unit/500ml) 30 units in 500 mls @ 40 mls/hr IV TITR AMINATA; Protocol Clindamycin HCl (Cleocin 900 Mg/50 Ml) 900 mg in 50 mls @ 100 mls/hr IV Q8HR AMINATA; Protocol Last Admin: 10/11/20 05:59 Dose: 100 mls/hr Documented by: Ibuprofen (Ibuprofen) 600 mg PO Q6H AMINATA Mineral Oil (Mineral Oil) 30 ml PO QHS PRN PRN Reason: Constipation Ondansetron HCl (Zofran) 4 mg IV Q8H PRN PRN Reason: Nausea And Vomiting Sodium Chloride (Sodium Chloride Flush Syringe 10 Ml) 10 ml IV PRN NR Stop: 10/24/20 08:59 Terbutaline Sulfate (Brethine) 0.25 mg SUB-Q ONCE PRN PRN Reason: Hyperstimulation/Hypertonicity Witch Lizzie/Glycerin (Tucks Pad) 1 each TP PRN PRN PRN Reason: Hemorrhoid/cleansing/soothing - Vital Signs Vital signs: Vital Signs Temp Pulse Resp BP Pulse Ox 98.4 F 84 18 133/76 100 10/11/20 04:36 10/11/20 04:36 10/11/20 04:36 10/11/20 04:36 10/11/20 04:36 Temp Pulse Resp BP Pulse Ox 98.1 F 78 22 131/59 100 10/11/20 10:40 10/11/20 10:29 10/11/20 08:01 10/11/20 10:29 10/11/20 09:15 - Physical Exam Breasts: Positive: normal Cardiovascular: Regular rate Lungs: Positive: Clear to auscultation, Normal air movement Abdomen: Positive: normal appearance, soft, normal bowel sounds Genitourinary (Female): Positive: normal external genitalia, normal perenium Vagina: Positive: normal moisture Uterus: Positive: enlarged Anus/Rectum: Positive: normal perianal skin - Obstetrical FHR: category 1 Uterine Contraction Monitor Mode: External Cervical Dilatation: 9 Cervical Effacement Percentage: 100 station: +1 Uterine Contraction Pattern: Regular Uterine Tone Measurement Phase: Resting Uterine Contraction Intensity: Moderate Results Result Diagrams: 10/11/20 05:06 Abnormal lab results 10/11/20 Range/Units 05:06 RDW 13.0 L (13.2-15.2) % All other labs normal. Assessment and Plan A: IUP @ 38 4/7 Weeks Category I Tracing Active Labor GBS Negative Epilepsy P: Admit to L&D Per Routine Orders AROM Anticipate
[2020-10-11] MEDS: IBUPROFEN 600 MG TAB PO SCH ×2 (17:33→23:35)
[2020-10-11 20:23] LABS: Hematocrit 31.7 % (30.3-42.9); Hemoglobin 10.7 gm/dl (10.1-14.3)
[2020-10-12] MEDS: IBUPROFEN 600 MG TAB PO SCH ×2 (05:03→16:53)
--- NOTE | 2020-10-12 22:25 | Progress Note ---
Assessment and Plan A: S/P Anemia P: Continue monitoring D/C home tomm if stable Subjective - Subjective Date of service: 10/12/20 Patient reports: appetite normal, voiding normally, pain well controlled, ambulating normally : doing well, in NICU Objective - Vital Signs Latest vital signs: Vital Signs Temp Pulse Resp BP BP Pulse Ox 10/12/20 16:53 20 10/12/20 16:10 97.7 F 64 20 103/70 98 10/12/20 10:07 20 10/12/20 08:16 97.6 F 69 20 119/83 99 10/12/20 00:20 98.2 F 70 20 123/68 97 Intake and Output 10/12/20 10/12/20 10/12/20 06:59 14:59 22:59 Intake Total 480 720 240 Balance 480 720 240 Intake: Oral 480 720 240 Other: Total, Intake Amount 240 360 240 # Voids Void 1 1 1 - Exam Breasts: Present: normal Cardiovascular: Present: Regular rate Lungs: Present: Clear to auscultation Abdomen: Present: normal appearance, soft, normal bowel sounds Vulva: both: normal Uterus: Present: normal, firm, fundal height below umbilicus Extremities: Present: normal
--- NOTE | 2020-10-12 22:35 | Discharge Summary ---
Providers - Providers Date of Admission: 10/11/20 05:07 Date of discharge: 10/13/20 Attending physician: ARA SEPULVEDA JR, MD Primary care physician: ARA SEPULVEDA JR, MD Hospitalization Reason for admission: active labor Delivery: Episiotomy: none Laceration: none Other procedures: none complications: none Discharge diagnosis: IUP at term delivered baby: male Hospital course: Pt was admitted in labor and delivered a live male via . She was d/cd home in stable cond. See H&P, delivery summary, and pp notes. Condition at discharge: Stable Disposition: DC-01 TO HOME OR SELFCARE Plan - Discharge Medications Prescriptions: Ibuprofen [Motrin 600 MG tab] 600 mg PO Q6H #30 tablet - Provider Discharge Summary Activity: routine, no sex for 6 weeks, no heavy lifting 4 weeks, no strenuous exercise Diet: routine Instructions: routine Additional instructions: [] Smoking cessation referral if applicable(refer to patient education folder for contact #) [] Refer to [facility]'s [facility] Booklet Call your doctor immediately for: * Fever > 100.5 * Heavy vaginal bleeding ( >1 pad per hour) * Severe persistent headache * Shortness of breath * Reddened, hot, painful area to leg or breast * Drainage or odor from incision. * Keep incision clean and dry at all times and follow doctor's instructions regarding bathing/showering - Follow up plan Follow up: ARA SEPULVEDA JR, MD [Primary Care Provider] - 6 Weeks
[2020-10-13] MEDS: IBUPROFEN 600 MG TAB PO SCH ×3 (00:37→11:51)
[2020-10-13 18:53] VITALS: BP 126/77
== END 2020-10-13 16:30 | disposition home or self-care (01) | DRG 775 ==
LOC: TRG 04:19 → APU 04:20 → TRG 05:06 → LD 05:07 → OB 11:23
PROVIDERS: ADMIT Obstetrics & Gynecology; ATTEND Obstetrics & Gynecology
PROC: 10E0XZZ Delivery of Products of Conception, External Approach (ICD-10-PCS; principal; 2020-10-11)
PROC: 10907ZC Drainage of Amniotic Fluid, Therapeutic from Products of Conception, Via Natural or Artificial Opening (ICD-10-PCS; 2020-10-11)
DX: O99.354 Diseases of the nervous system complicating childbirth (principal); O90.81 Anemia of the puerperium; G40.909 Epilepsy, unspecified, not intractable, without status epilepticus; Z20.828 Contact with and (suspected) exposure to other viral communicable diseases; Z88.8 Allergy status to other drugs, medicaments and biological substances; Z37.0 Single live birth; Z91.040 Latex allergy status; Z3A.38 38 weeks gestation of pregnancy; Z88.5 Allergy status to narcotic agent; Z88.6 Allergy status to analgesic agent
CPT/HCPCS: 36415; 85014; 85018; 85027; 86592; 86850; 86900; 86901; G0378; J2590; J3010; J7120; U0003

== ENCOUNTER 2022-08-02 14:52 | Inpatient (IN) | payer MEDICAID ==
[2022-08-02] MEDS ORDERED: LACTATED RINGERS 1,000 ML ONE ×2 (15:22→20:18)
[2022-08-02] MEDS ORDERED: LIDOCAINE 1.5% /EPINEPHRINE 1:200,000 AMP (5 ML) INFILTRATI ONE (16:32)
[2022-08-02] MEDS ORDERED: NALOXONE 0.4 MG/1 ML INJ IV PRN (16:55)
[2022-08-02] MEDS ORDERED: ePHEDrine SULFATE 50 MG/1 ML INJ IV PRN ×2 (16:55→21:32)
[2022-08-02] MEDS ORDERED: fentaNYL-BUPIV 2 MCG/ML-0.125% 200 MCG/100 ML BAG EPIDURAL SCH (17:00)
[2022-08-02] MEDS ORDERED: ePHEDrine SULFATE 50 MG/1 ML INJ ONE (17:17)
--- NOTE | 2022-08-02 17:27 | History and Physical Report ---
History of Present Illness Date of examination: 08/02/22 Date of admission: Aug 02, 2022 Chief complaint: contractions History of present illness: 32 y/o presents to labor and delivery after being sent from the office at [facility]. She is GBS +. She has a history of seizures and takes Lamictal and Keppra Past History Past Medical History: seizure Past Surgical History: no surgical history Family/Genetic History: none Social history: no significant social history - Obstetrical History Expected Date of Delivery: 08/15/22 Actual Gestation: 38 Week(s) 1 Day(s) : 7 Para: 5 Number of Living Children: 5 Medications and Allergies Allergies Allergy/AdvReac Type Severity Reaction Status Date / Time Penicillins Allergy Rash Verified 12/09/18 14:48 hydrocodone bitartrate AdvReac Nausea Verified 12/09/18 14:48 [From Lortab] latex AdvReac Swelling Verified 12/09/18 14:48 phenytoin sodium AdvReac Itching Verified 12/09/18 14:48 [From Dilantin] phenytoin sodium extended AdvReac Itching Verified 12/09/18 14:48 [From Dilantin] Home Medications Medication Instructions Recorded Confirmed Last Taken Type Vits96/Iron Fum/Folic 1 each PO QDAY #30 tablet 05/26/14 10/11/20 12/05/18 Rx [ Tablet] Ferrous Sulfate [Feosol 325 MG tab] 325 mg PO BID #60 tablet 12/11/18 10/11/20 10/09/20 Rx Ibuprofen [Motrin 600 MG tab] 600 mg PO Q6H #30 tablet 10/12/20 Unknown Rx Active Meds: Active Medications Ephedrine Sulfate (Ephedrine Sulfate 50 Mg/1 Ml Inj) 10 mg IV Q2M PRN PRN Reason: Hypotension Clindamycin HCl (Cleocin 900 Mg/50 Ml) 900 mg in 50 mls @ 100 mls/hr IV Q8H AMINATA; Protocol Fentanyl/Bupivacaine/Sodium Chlor (Fentanyl-Bupiv 2 Mcg/Ml-0.125%) 200 mcg in 100 mls @ 12 mls/hr EPIDURAL TITR AMINATA; Protocol Naloxone HCl (Naloxone 0.4 Mg/1 Ml Inj) 0.2 mg IV Q5MIN PRN PRN Reason: Respiratory sedation Review of Systems All systems: negative - Vital Signs Vital signs: Vital Signs Pulse Pulse Ox 80 98 08/02/22 15:00 08/02/22 15:00 Temp Pulse Resp BP Pulse Ox 97.7 F 73 16 92/51 100 08/02/22 15:26 08/02/22 17:22 08/02/22 15:26 08/02/22 17:22 08/02/22 17:20 - Physical Exam Breasts: Positive: deferred Cardiovascular: Regular rate Lungs: Positive: Clear to auscultation Abdomen: Positive: soft Vulva: both: normal Uterus: Positive: enlarged Anus/Rectum: Positive: normal perianal skin Extremities: Positive: normal Deep Tendon Reflex Grade: Normal +2 - Obstetrical FHR: category 1 Uterine Contraction Monitor Mode: External Cervical Dilatation: 6 Cervical Effacement Percentage: 80 station: -1 Uterine Contraction Pattern: Irregular Uterine Contraction Intensity: Moderate Results All other labs normal. Assessment and Plan A: Active labor at 38.1 weeks P: Expect
--- NOTE | 2022-08-02 17:53 | Anesthesia Consultation ---
Anesthesia Consult and Med Hx Date of service: 08/02/22 - Airway Anesthetic Teeth Evaluation: Poor ROM Head & Neck: Adequate Mental/Hyoid Distance: Adequate Mallampati Class: Class II Intubation Access Assessment: Good - Pulmonary Exam CTA: Yes - Cardiac Exam Cardiac Exam: RRR - Pre-Operative Health Status ASA Pre-Surgery Classification: ASA2 Proposed Anesthetic Plan: Epidural - Pulmonary Hx Smoking: No Hx Asthma: No Hx Respiratory Symptoms: No SOB: No COPD: No Hx Pneumonia: No Hx Sleep Apnea: No - Cardiovascular System Hx Hypertension: No Hx Coronary Artery Disease: No Hx Heart Attack/AMI: No Hx Angina: No Hx Percutaneous Transluminal Coronary Angioplasty (PTCA): No Hx Cardia Arrhythmia: No Hx Pacemaker: No Hx Internal Defibrillator: No Hx Valvular Heart Disease: No Hx Heart Murmur: No Hx Peripheral Vascular Disease: No - Central Nervous System Hx Neuromuscular Disorder: No Hx Seizures: Yes (2006) CVA: No Hx Back Pain: No Hx Psychiatric Problems: No - Gastrointestinal Hx Ulcer: No Hx Gastroesophageal Reflux Disease: No - Endocrine Hx Renal Disease: No Hx End Stage Renal Disease: No Hx Cirrhosis: No Hx Liver Disease: No Hx Insulin Dependent Diabetes: No Hx Non-Insulin Dependent Diabetes: No Hx Thyroid Disease: No Hx Hypothyroidism: No Hx Hyperthyroidism: No - Hematic Hx Anemia: Yes (history of blood transfution) Hx Sickle Cell Disease: Yes - Other Systems Hx Alcohol Use: No Hx Substance Use: No Hx Cancer: No Hx Obesity: No
--- NOTE | 2022-08-02 17:54 | Progress Note ---
Labor Epidural - Labor Epidural Start Time: 16:39 Stop Time: 16:45 Performed by:: JUDI SCHULER Procedure: Patient is requesting a laboring epidural for laboring pain. Patient IDed, H&P reviewed, all questions and concerns were answered, and consent was signed. Timeout was performed at bedside. Patient in sitting position. Sterile prep and drape was performed. [3] ml of 1% lidocaine skin wheal at L[3]- L [4]. 17- gauge Tuohy epidural needle was advanced to loss of resistance with saline technique 6cm. Single dural perforation via 25 guage spinal needle placed through the shaft of Epidural needle. Positive CSF via spinal needle. Negative CSF negative blood via Epidural needle. Epidural catheter advanced to [10] centimeters. [NEGATIVE] Aspiration [NEGATIVE] test dose. Negative Paresthesia. Sterile dressing applied. Patient tolerated procedure.
--- NOTE | 2022-08-02 21:31 | Procedure Note ---
OB Delivery Note - Delivery Date of Delivery: 08/02/22 Surgeon: MARITA NEWBERRY (Praveena SANCHEZ) Estimated blood loss: other (50cc) - Vaginal Delivery presentation: vertex Delivery position: OA Delivery induction: AROM Delivery monitor: external FHT, external uterine Route of delivery: Delivery placenta: spontaneous Delivery cord: 3 umbilical vessels Episiotomy: none Delivery laceration: none Anesthesia: epidural Delivery comments: of a viable female 6# 4oz @ 2106 over intact perineum. 8/9. Placenta delivered 3VCI. QBL 50cc - A at 1 minute: 8 at 5 minutes: 9 (6# 4oz) Gender: Female
[2022-08-02] MEDS ORDERED: LIDOCAINE (2%) 20 MG/1 ML VIAL 20 ML MDV INFILTRATI ONE (21:32)
[2022-08-02] MEDS ORDERED: MINERAL OIL 30 ML ORAL LIQD PO PRN (21:32)
[2022-08-02] MEDS ORDERED: CARBOPROST TROMETHAMINE 250 MCG/1 ML INJ IM PRN (21:32)
[2022-08-02] MEDS ORDERED: TERBUTALINE 1 MG/1 ML INJ SUB-Q PRN (21:32)
[2022-08-02] MEDS ORDERED: LOPERAMIDE 2 MG CAP PO PRN (21:32)
[2022-08-02] MEDS ORDERED: miSOPROStol 200 MCG TAB PR PRN (21:32)
[2022-08-02] MEDS ORDERED: BUTORPHANOL 2 MG/1 ML INJ IV PRN ×2 (21:32)
[2022-08-02] MEDS ORDERED: METHYLERGONOVINE MALEATE 0.2 MG/ML VIAL IM PRN (21:32)
[2022-08-02] MEDS ORDERED: ACETAMINOPHEN 325 MG TAB PO PRN ×2 (21:32→21:34)
[2022-08-02] MEDS ORDERED: OXYTOCIN 10 UNIT/1 ML INJ IM PRN (21:32)
[2022-08-02] MEDS ORDERED: WITCH HAZEL/ GLYCERIN PAD TP PRN (21:34)
[2022-08-02] MEDS ORDERED: oxyCODONE /ACETAMINOPHEN 5-325MG TAB PO PRN (21:34)
[2022-08-02] MEDS ORDERED: LANOLIN/ZINC/DIMETHICONE (LANSINOH) 7 GM TP PRN (21:34)
[2022-08-02] MEDS ORDERED: LACTATED RINGERS 1,000 ML IV SCH (21:45)
[2022-08-02] MEDS ORDERED: OXYTOCIN DRIP 30 UNITS/500 ML BAG IV SCH ×2 (22:00)
[2022-08-03] MEDS: IBUPROFEN 800 MG TAB PO SCH ×5 (02:06→22:00)
[2022-08-03 09:43] LABS: Hematocrit 29.7 % (30.3-42.9)
[2022-08-03] MEDS ORDERED: levETIRAcetam 500 MG TAB PO SCH (10:00)
[2022-08-03] MEDS ORDERED: lamoTRIgine 100 MG TAB PO SCH (10:00)
[2022-08-03] MEDS ORDERED: FLUCONAZOLE 200 MG TAB PO ONE ×3 (10:00→18:00)
--- NOTE | 2022-08-03 11:26 | Progress Note ---
Assessment and Plan A: PPD # 1 -stable P: Plan discharge home in am Discharge instructions given Subjective - Subjective Date of service: 08/03/22 Principal diagnosis: , PPD #1 Interval history: She has a history of seizures and takes Lamictal and Keppra. Restarting medication today. Patient reports: appetite normal : doing well Objective - Vital Signs Latest vital signs: Vital Signs Temp Pulse Resp BP BP Pulse Ox Pulse Ox 08/03/22 08:00 100 08/03/22 03:30 98.4 F 75 16 115/78 08/03/22 00:35 100 08/03/22 00:34 98.3 F 80 18 122/70 100 08/02/22 22:47 82 100 08/02/22 22:45 86 129/61 08/02/22 22:42 79 99 08/02/22 22:37 77 100 08/02/22 22:32 80 100 08/02/22 22:27 87 100 08/02/22 22:22 84 98 08/02/22 22:17 95 H 99 08/02/22 22:15 80 103/55 08/02/22 22:12 98 H 100 08/02/22 22:07 94 H 100 08/02/22 22:02 90 100 08/02/22 21:59 125 H 95/50 08/02/22 21:57 96 H 100 08/02/22 21:52 95 H 100 08/02/22 21:47 92 H 100 08/02/22 21:44 102 H 95/51 08/02/22 21:42 98 H 100 08/02/22 21:37 85 100 08/02/22 21:32 90 100 08/02/22 21:29 92 H 93/53 08/02/22 21:27 99 H 100 08/02/22 21:25 98 H 92 08/02/22 21:22 102 H 100 08/02/22 21:17 98 H 97 08/02/22 21:14 97 H 96/50 08/02/22 21:13 96 H 98/52 08/02/22 21:12 114 H 100 08/02/22 21:07 117 H 100 08/02/22 21:02 92 H 100 08/02/22 20:57 88 100 08/02/22 20:56 93 H 114/65 08/02/22 20:53 85 102/61 08/02/22 20:52 84 99 08/02/22 20:48 85 150/72 94 08/02/22 20:47 89 100 08/02/22 20:43 81 157/87 08/02/22 20:42 105 H 100 08/02/22 20:37 83 109/59 100 08/02/22 20:32 91 H 100 08/02/22 20:31 88 112/67 08/02/22 20:27 91 H 116/69 100 08/02/22 20:22 92 H 118/74 99 08/02/22 20:17 82 100 08/02/22 20:16 94 H 109/67 08/02/22 20:12 83 100 08/02/22 20:11 81 113/68 08/02/22 20:07 92 H 120/71 100 08/02/22 20:02 75 100 08/02/22 20:01 87 118/62 08/02/22 19:57 75 99 08/02/22 19:56 78 113/67 08/02/22 19:52 75 118/68 100 08/02/22 19:47 87 108/67 100 08/02/22 19:42 77 100 08/02/22 19:41 75 110/61 08/02/22 19:40 81 80 L 08/02/22 19:36 81 114/67 08/02/22 19:35 77 100 08/02/22 19:31 81 107/64 08/02/22 19:30 77 100 08/02/22 19:26 93 H 119/63 08/02/22 19:25 82 100 08/02/22 19:22 81 114/67 08/02/22 19:20 89 100 08/02/22 19:16 82 118/70 08/02/22 19:15 86 100 08/02/22 19:12 78 114/67 08/02/22 19:10 82 100 08/02/22 19:06 100 H 109/66 08/02/22 19:05 82 99 08/02/22 19:01 94 H 111/66 08/02/22 19:00 88 99 08/02/22 18:56 84 112/64 08/02/22 18:55 86 100 08/02/22 18:51 75 109/64 08/02/22 18:50 71 100 08/02/22 18:47 74 109/68 08/02/22 18:45 78 100 08/02/22 18:41 75 108/60 08/02/22 18:40 76 100 08/02/22 18:37 74 105/61 08/02/22 18:35 78 100 08/02/22 18:31 76 110/66 08/02/22 18:30 83 100 08/02/22 18:26 84 103/61 08/02/22 18:25 78 99 08/02/22 18:21 95 H 104/59 08/02/22 18:20 94 H 100 08/02/22 18:16 72 106/62 08/02/22 18:15 78 100 08/02/22 18:12 88 100/60 08/02/22 18:10 83 100 08/02/22 18:06 81 106/62 08/02/22 18:05 80 100 08/02/22 18:01 87 105/64 08/02/22 18:00 79 98 08/02/22 17:56 98 H 99/62 08/02/22 17:55 90 100 08/02/22 17:50 85 99/58 100 08/02/22 17:48 96 H 97/63 08/02/22 17:46 80 96/60 08/02/22 17:45 89 99 08/02/22 17:44 100 H 89/52 08/02/22 17:42 77 93/54 08/02/22 17:40 88 94/53 98 08/02/22 17:38 78 85/49 08/02/22 17:36 104 H 83/50 08/02/22 17:35 97 H 98 08/02/22 17:34 96 H 88/54 08/02/22 17:32 72 93/53 08/02/22 17:30 82 94/52 98 08/02/22 17:28 75 90/50 08/02/22 17:26 68 90/50 08/02/22 17:25 78 97 08/02/22 17:24 74 95/53 08/02/22 17:22 73 92/51 08/02/22 17:20 70 65/34 100 08/02/22 17:18 76 63/35 08/02/22 17:16 81 71/39 08/02/22 17:15 89 100 08/02/22 17:14 96 H 74/36 08/02/22 17:12 97 H 92/55 08/02/22 17:10 89 89/51 99 08/02/22 17:08 95 H 81/50 08/02/22 17:06 93 H 95/59 08/02/22 17:05 98 H 98 08/02/22 17:04 85 95/55 08/02/22 17:02 111 H 101/53 08/02/22 17:00 102 H 106/65 99 08/02/22 16:58 108 H 107/69 08/02/22 16:56 92 H 120/75 08/02/22 16:55 93 H 99 08/02/22 16:54 98 H 112/74 08/02/22 16:52 85 114/70 08/02/22 16:50 92 H 127/61 98 08/02/22 16:49 99 H 93 08/02/22 16:48 94 H 123/72 08/02/22 16:46 97 H 132/68 08/02/22 16:45 93 H 99 08/02/22 16:40 90 100 08/02/22 16:39 92 H 136/72 94 08/02/22 16:35 98 H 99 08/02/22 16:30 78 99 08/02/22 16:25 81 98 08/02/22 16:20 81 98 08/02/22 16:15 89 98 08/02/22 16:10 84 99 08/02/22 16:05 83 99 08/02/22 16:00 86 99 08/02/22 15:55 76 99 08/02/22 15:50 86 99 08/02/22 15:45 83 98 08/02/22 15:40 77 98 08/02/22 15:35 71 98 08/02/22 15:30 78 98 08/02/22 15:28 79 127/77 08/02/22 15:26 97.7 F 77 16 127/77 97 08/02/22 15:25 77 97 08/02/22 15:05 80 100 08/02/22 15:00 80 98 Intake and Output 09/08/1508/03/22 08/03/22 22:59 06:59 14:59 Intake Total 400 800 Output Total 300 1400 Balance 100 -600 Intake: Oral 200 Intake, Free Water 400 600 Output: Urine 300 1400 Indwelling Catheter 300 Void 1400 Other: Total, Intake Amount 200 Total, Output Amount 300 600 # Voids Void 1 Weight 166 lb Estimated Blood Loss 50 - Exam Breasts: Present: deferred Cardiovascular: Present: Regular rate Lungs: Present: Clear to auscultation Abdomen: Present: soft Vulva: both: normal Uterus: Present: fundal height below umbilicus Deep Tendon Reflex Grade: Normal +2 - Labs Labs: Abnormal lab results 08/03/22 Range/Units 08:59 Hgb 10.0 L (10.1-14.3) gm/dl Hct 29.7 L (30.3-42.9) %
--- NOTE | 2022-08-03 11:27 | Discharge Summary ---
Providers - Providers Date of Admission: 08/02/22 21:32 Date of discharge: 08/03/22 Attending physician: ANNIKA VARGAS MD Primary care physician: ANNIKA VARGAS MD Hospitalization Reason for admission: active labor Delivery: Episiotomy: none Laceration: none Other procedures: none complications: none Discharge diagnosis: IUP at term delivered [place] baby: female Condition at discharge: Good Disposition: 01 HOME / SELF CARE / HOMELESS Plan - Provider Discharge Summary Activity: routine, no sex for 6 weeks Diet: routine Instructions: routine Additional instructions: [] Smoking cessation referral if applicable(refer to patient education folder for contact #) [] Refer to [facility]'s [facility] Booklet Call your doctor immediately for: * Fever > 100.5 * Heavy vaginal bleeding ( >1 pad per hour) * Severe persistent headache * Shortness of breath * Reddened, hot, painful area to leg or breast * Drainage or odor from incision. * Keep incision clean and dry at all times and follow doctor's instructions regarding bathing/showering - Follow up plan Follow up: ANNIKA VARGAS MD [Primary Care Provider] - 6 Weeks
[2022-08-03] MEDS: levETIRAcetam 500 MG TAB PO SCH ×2 (11:35→23:49)
--- NOTE | 2022-08-03 12:36 | Post Anesthesia Evaluation ---
- Post Anesthesia Evaluation Patient Participated: Yes Airway Patent: Yes Stable Respiratory Function: Yes Nausea/Vomiting: No Temp > 96.8F: Yes Pain Manageable: Yes Adequeate Hydration: Yes Anesthesia Complications: No Block Receding Appropriately: Yes Patient on Ventilator: No
[2022-08-03] MEDS: lamoTRIgine 100 MG TAB PO SCH ×2 (16:32→23:48)
[2022-08-03] MEDS ORDERED: diphenhydrAMINE 50 MG CAP PO ONE ×2 (18:00)
[2022-08-04] MEDS: IBUPROFEN 800 MG TAB PO SCH ×3 (04:00→15:17)
[2022-08-04] MEDS: levETIRAcetam 500 MG TAB PO SCH (10:12)
[2022-08-04 17:30] VITALS: BP 111/58
== END 2022-08-04 18:35 | disposition home or self-care (01) | DRG 775 ==
LOC: TRG 14:52 → LD 14:52 → APU 14:54 → LD 21:32 → TRG 21:32 → OB 08-03 01:41
PROVIDERS: ADMIT Obstetrics & Gynecology Gynecology; ATTEND Obstetrics & Gynecology Gynecology
PROC: 10E0XZZ Delivery of Products of Conception, External Approach (ICD-10-PCS; principal; 2022-08-02)
PROC: 3E0R3BZ Introduction of Anesthetic Agent into Spinal Canal, Percutaneous Approach (ICD-10-PCS; 2022-08-02)
PROC: 00HU33Z Insertion of Infusion Device into Spinal Canal, Percutaneous Approach (ICD-10-PCS; 2022-08-02)
PROC: 10907ZC Drainage of Amniotic Fluid, Therapeutic from Products of Conception, Via Natural or Artificial Opening (ICD-10-PCS; 2022-08-02)
DX: O99.824 Streptococcus B carrier state complicating childbirth (principal); Z20.822 Contact with and (suspected) exposure to COVID-19; Z3A.38 38 weeks gestation of pregnancy; Z37.0 Single live birth; Z88.0 Allergy status to penicillin; Z88.8 Allergy status to other drugs, medicaments and biological substances; Z91.040 Latex allergy status; O99.02 Anemia complicating childbirth
CPT/HCPCS: 36415; 85014; 85018; 86706; 86850; 86900; 86901; G0378; J7120; U0003